=== PATIENT | female | born 1960 | race Hispanic/Latino ===

== ENCOUNTER 2017-04-26 16:03 | Emergency (ER) | payer MEDICARE ==
[2017-04-26] MEDS ORDERED: NITROGLYCERIN 0.4 MG SL TAB SL ONE (16:26)
[2017-04-26] MEDS ORDERED: ASPIRIN 325 MG TABLET ONE (16:26)
[2017-04-26 16:32] LABS: BASOPHILS % (AUTO) 0.5 % (0.0-5.0); EOSINOPHILS % (AUTO) 3.9 % (0.0-8.0); HEMATOCRIT 38.4 % (36-48); LYMPHOCYTES % (AUTO) 37.9 % (21.0-51.0); MEAN CORPUSCULAR HEMOGLOBIN 31.6 pg (27.0-33.0); MEAN CORPUSCULAR HGB CONC 34.9 g/dL (32.0-36.0); MEAN CORPUSCULAR VOLUME 90.6 fL (79-99); MONOCYTES % (AUTO) 5.6 % (3.0-13.0); NEUTROPHILS % (AUTO) 52.1 % (40.0-77.0); PLATELET COUNT (AUTO) 415 K/uL (130-400); RED BLOOD CELL COUNT(AUTO) 4.23 MIL/uL (4.00-5.50); RED CELL DISTRIBUTION WIDTH 13.3 % (11.0-15.5); WHITE BLOOD COUNT (AUTO) 7.5 K/uL (4.8-10.8)
[2017-04-26] MEDS ORDERED: ONDANSETRON HCL 4 MG/2 ML VIAL ONE (16:34)
[2017-04-26 16:40] LABS: CREATININE 0.9 mg/dL (0.5-1.5)
[2017-04-26 16:45] LABS: BILIRUBIN,TOTAL 0.2 mg/dL (0.2-1.0); TOTAL PROTEIN, SERUM 8.5 g/dL (6.0-8.3)
[2017-04-26 16:52] LABS: INR 0.93 (0.85-1.15); PARTIAL THROMBOPLASTIN TIME 25.2 SEC (26.3-35.5); PROTHROMBIN TIME 9.8 SEC (9.6-11.6)
[2017-04-26] MEDS ORDERED: KETOROLAC TROMETHAMINE 30MG/ML ONE (17:09)
[2017-05-26] MEDS ORDERED: INS7030 SQ ×2 (11:40)
[2017-05-26] MEDS ORDERED: ATOR40TA71 PO (11:40)
[2017-05-26] MEDS ORDERED: FISH1CAP49 PO (11:40)
[2017-05-26] MEDS ORDERED: FLUO20CA30 PO (11:40)
[2017-05-26] MEDS ORDERED: METF850T2 PO (11:40)
[2017-05-26] MEDS ORDERED: LISI40TA4 PO (11:40)
[2017-05-26] MEDS ORDERED: CYAN500L PO (11:40)
[2017-05-26] MEDS ORDERED: GABA-531 PO (11:40)
[2017-05-26] MEDS ORDERED: MULT1TAB66 PO (11:40)
[2017-05-26] MEDS ORDERED: CETI-101 PO (11:40)
[2017-05-26] MEDS ORDERED: ACET-2900 PO (11:40)
[2017-05-26] MEDS ORDERED: AMLO10TA2 PO (11:41)
== END 2017-04-26 18:56 | disposition home or self-care (01) ==
LOC: EDH 16:03
DX: R07.9 Chest pain, unspecified (principal); E11.9 Type 2 diabetes mellitus without complications; E78.5 Hyperlipidemia, unspecified; I10 Essential (primary) hypertension; M19.90 Unspecified osteoarthritis, unspecified site; Z98.890 Other specified postprocedural states
CPT/HCPCS: 36415; 71045; 80053; 82550; 84484 ×2; 85025; 85378; 85610; 85730; 93005 ×2; 96374; 96375; 99285; J1885; J2405

== ENCOUNTER 2017-05-26 12:00 | Observation (INO) | payer MEDICARE ==
[~2017-05-26] VITALS: Ht 147.3 cm; Wt 58.5 kg
[2017-05-26 11:18] VITALS: BP 136/72
[~2017-05-26 12:00] MED LIST: ACET-2900 PO; AMLO10TA2 PO; ATOR40TA71 PO; CETI-101 PO; CYAN500L PO; FISH1CAP49 PO; FLUO20CA30 PO; GABA-531 PO; INS7030 SQ; LISI40TA4 PO; METF850T2 PO; MULT1TAB66 PO
[2017-05-27] VITALS (23 sets, daily range): BP systolic 114–144; BP diastolic 58–84
[2017-05-27] MEDS ORDERED: CEFAZOLIN SODIUM 1 GM VIAL IVP SCH (05:00)
[2017-05-27] MEDS ORDERED: SODIUM CHLORIDE 0.9% 1000ML 1,000 ML IV ONE (09:40)
[2017-05-27] MEDS ORDERED: VECURONIUM BROMIDE 10 MG ML IV ONE (11:06)
[2017-05-27] MEDS ORDERED: ROPIVACAINE 0.5% 5MG/ML 30ML IJ ONE (11:06)
[2017-05-27] MEDS ORDERED: DEXAMETHASONE SOD PHOSPHATE 10MG/ML 1ML VIAL ONE (11:08)
[2017-05-27] MEDS ORDERED: SUCCINYLCHOLINE 200MG/10ML SYR ONE (11:08)
[2017-05-27] MEDS ORDERED: LIDOCAINE PF 2% 5ML ABBOJECT ONE (11:08)
[2017-05-27] MEDS ORDERED: ONDANSETRON HCL 4 MG/2 ML VIAL ONE (11:08)
[2017-05-27] MEDS ORDERED: GLYCOPYRROLATE 0.2 MG/ML 5 ML VIAL ONE (11:08)
[2017-05-27] MEDS ORDERED: FENTANYL CITRATE PF 50 MCG/1 ML 2ML VIAL ONE (11:08)
[2017-05-27] MEDS ORDERED: PROPOFOL 10 MG/ML 20ML VIAL IV ONE ×2 (11:08→13:00)
[2017-05-27] MEDS ORDERED: MIDAZOLAM HCL 1 MG/ML 2ML VIAL ONE (11:08)
[2017-05-27] MEDS ORDERED: NEOSTIGMINE 5MG/5ML SYR IV ONE (13:01)
[2017-05-27] MEDS ORDERED: KETOROLAC TROMETHAMINE 30MG/ML ONE (13:07)
[2017-05-27 13:52] LABS: HEMATOCRIT 35.1 % (36-48)
[2017-05-27] MEDS ORDERED: LACTATED RINGERS 1000ML 1,000 ML IV ONE (15:27)
[2017-05-27] MEDS ORDERED: PROMETHAZINE HCL 25 MG/ML 1ML AMPULE IM PRN (15:30)
[2017-05-27] MEDS ORDERED: LACTATED RINGERS 1000ML 1,000 ML IV SCH (15:30)
[2017-05-27] MEDS ORDERED: BISACODYL 10 MG SUPP.RECT RC PRN (15:30)
[2017-05-27] MEDS ORDERED: DEXTROSE 5%-LACTATED RINGERS 1,000 ML IV SCH (15:30)
[2017-05-27] MEDS ORDERED: MAGNESIUM HYDROXIDE 30 ML/UDCUP PO PRN (15:30)
[2017-05-27] MEDS ORDERED: MORPHINE SULFATE 10 MG/ML 1ML SYG IM PRN (15:30)
[2017-05-27] MEDS: CEFAZOLIN SODIUM 1 GM VIAL IVP SCH ×2 (16:28→23:46)
[2017-05-27 18:08] LABS: HEMATOCRIT 35.1 % (36-48)
[2017-05-28 00:05] VITALS: BP 116/67
[2017-05-28] MEDS ORDERED: INSULIN HUMULIN R 100 UNIT/ML 3ML ONE (00:34)
[2017-05-28] MEDS ORDERED: POTASSIUM CHLORIDE 20 MEQ ERTAB PO PRN (00:45)
[2017-05-28] MEDS ORDERED: POTASSIUM CHLORIDE 10% ELIXIR 20 MEQ/15 ML UDCUP PO PRN (00:45)
[2017-05-28] MEDS ORDERED: GLUCAGON 1MG KIT 1 MG ML IM PRN (00:45)
[2017-05-28] MEDS ORDERED: POTASSIUM CHLORIDE 20MEQ/100ML 100 ML IV PRN (00:45)
[2017-05-28] MEDS ORDERED: ACETAMINOPHEN-CODEINE 300/30MG TAB PO PRN (00:45)
[2017-05-28] MEDS ORDERED: INSULIN HUMULIN R 100 UNIT/ML 3ML SQ SCH (00:45)
[2017-05-28] MEDS ORDERED: DEXTROSE 50%-WATER 50 ML DISP.SYRIN IV PRN (00:45)
[2017-05-28] MEDS ORDERED: LIDOCAINE HCL-MPF 1% 2ML VIAL IVP PRN (00:45)
[2017-05-28 01:19] LABS: HEMATOCRIT 32.4 % (36-48)
[2017-05-28] MEDS: KETOROLAC TROMETHAMINE 30MG/ML IV PRN ×2 (03:48→09:25)
[2017-05-28 04:00] VITALS: BP 143/76
[2017-05-28 05:07] LABS: HEMATOCRIT 31.6 % (36-48); MEAN CORPUSCULAR HEMOGLOBIN 31.5 pg (27.0-33.0); MEAN CORPUSCULAR HGB CONC 35.9 g/dL (32.0-36.0); MEAN CORPUSCULAR VOLUME 87.7 fL (79-99); PLATELET COUNT (AUTO) 398 K/uL (130-400); RED CELL DISTRIBUTION WIDTH 13.3 % (11.0-15.5); WHITE BLOOD COUNT (AUTO) 14.8 K/uL (4.8-10.8)
[2017-05-28 05:13] LABS: CREATININE 0.7 mg/dL (0.5-1.5)
[2017-05-28] MEDS ORDERED: INSULIN HUMULIN 70/30 100 UNIT/ML 3ML SQ ONE (06:08)
[2017-05-28] MEDS: INSULIN HUMULIN R 100 UNIT/ML 3ML SQ SCH ×3 (06:10→16:30)
[2017-05-28 08:00] VITALS: BP_SYST 109; BP_SYST 136; BP_DIAS 66; BP_DIAS 73
[2017-05-28] MEDS: CEFAZOLIN SODIUM 1 GM VIAL IVP SCH (08:09)
[2017-05-28] MEDS ORDERED: FLUOXETINE HCL 20 MG CAPSULE PO SCH (09:00)
[2017-05-28] MEDS ORDERED: INSULIN HUMULIN 70/30 100 UNIT/ML 3ML SQ SCH ×2 (09:00→21:00)
[2017-05-28] MEDS ORDERED: AMLODIPINE BESYLATE 5 MG TAB PO SCH (09:00)
[2017-05-28] MEDS ORDERED: CYANOCOBALAMIN (VITAMIN B-12) 1,000 MCG TABLET PO SCH (09:00)
[2017-05-28] MEDS ORDERED: LISINOPRIL 40 MG TABLET PO SCH (09:00)
[2017-05-28] MEDS ORDERED: TRAMADOL HCL 50 MG TABLET PO SCH (09:00)
[2017-05-28] MEDS ORDERED: MULTIVITAMIN TABLET PO SCH (09:00)
[2017-05-28] MEDS ORDERED: CETIRIZINE HCL 5 MG TABLET PO SCH (09:00)
[2017-05-28 11:00] VITALS: BP 139/77
[2017-05-28] MEDS: METFORMIN HCL 850 MG TABLET PO SCH ×2 (11:00→16:40)
[2017-05-28] MEDS: FISH OIL 1000 MG/CAP PO SCH ×2 (11:01→16:39)
[2017-05-28] MEDS: GABAPENTIN 300 MG CAPSULE PO SCH ×2 (11:01→16:40)
[2017-05-28] MEDS ORDERED: ATORVASTATIN CALCIUM 40 MG TABLET PO SCH (21:00)
[2017-05-28] MEDS ORDERED: ACETAMINOPHEN EXTENDED RELEASE 650 MG TABLET PO SCH (21:00)
== END 2017-05-28 17:00 | disposition home or self-care (01) ==
LOC: EDSTATUS 12:00 → DAHIP 05-27 08:39 → 4BH 05-27 13:36
DX: M75.42 Impingement syndrome of left shoulder (principal); M75.102 Unspecified rotator cuff tear or rupture of left shoulder, not specified as traumatic; E78.00 Pure hypercholesterolemia, unspecified; K21.9 Gastro-esophageal reflux disease without esophagitis; I10 Essential (primary) hypertension; E11.42 Type 2 diabetes mellitus with diabetic polyneuropathy; F32.9 Major depressive disorder, single episode, unspecified; Z79.899 Other long term (current) drug therapy; Z82.49 Family history of ischemic heart disease and other diseases of the circulatory system; M25.712 Osteophyte, left shoulder; E11.65 Type 2 diabetes mellitus with hyperglycemia; E78.5 Hyperlipidemia, unspecified
CPT/HCPCS: 23120; 23130; 23412; 36415 ×3; 71045; 80048; 82948 ×5; 85027; 85730; 88304; 88311; 96372; 96374; 96375; 96376 ×2; 97116 ×2; 97161; A4218 ×4; A4510; A4600; A4930; A6223; C1713 ×2; G0378 ×33; G8978; G8979; G8980; G8981; G8982; G8983; J0330; J0690 ×5; J1100; J1815 ×4; J1885 ×3; J2001; J2250; J2405; J2704 ×2; J2710; J2795; J3010; J3490 ×2; J7030 ×2; J7120 ×2

== ENCOUNTER 2017-06-01 13:01 | Emergency (ER) | payer MEDICARE ==
[2017-06-01] MEDS ORDERED: ONDANSETRON ODT 4 MG TAB ONE (15:02)
[2017-06-01] MEDS ORDERED: MORPHINE SULFATE 4 MG/1ML SYG ONE (15:02)
[2017-06-01] MEDS ORDERED: MORPHINE SULFATE 2 MG/ML 1ML SYG ONE (15:03)
== END 2017-06-01 15:18 | disposition home or self-care (01) ==
LOC: EDH 13:01
DX: G89.18 Other acute postprocedural pain (principal); M25.512 Pain in left shoulder; M19.90 Unspecified osteoarthritis, unspecified site; E11.9 Type 2 diabetes mellitus without complications; E78.5 Hyperlipidemia, unspecified; I10 Essential (primary) hypertension; Z98.890 Other specified postprocedural states; Z79.899 Other long term (current) drug therapy
CPT/HCPCS: 96372; 99283; J2270

== ENCOUNTER 2017-10-02 16:00 | Emergency (ER) | payer MEDICARE ==
[2017-10-02 16:59] LABS: BASOPHILS % (AUTO) 0.5 % (0.0-5.0); EOSINOPHILS % (AUTO) 3.6 % (0.0-8.0); HEMATOCRIT 35.2 % (36-48); LYMPHOCYTES % (AUTO) 41.5 % (21.0-51.0); MEAN CORPUSCULAR HEMOGLOBIN 30.5 pg (27.0-33.0); MEAN CORPUSCULAR HGB CONC 34.5 g/dL (32.0-36.0); MEAN CORPUSCULAR VOLUME 88.4 fL (79-99); MONOCYTES % (AUTO) 7.2 % (3.0-13.0); NEUTROPHILS % (AUTO) 47.2 % (40.0-77.0); PLATELET COUNT (AUTO) 394 K/uL (130-400); RED BLOOD CELL COUNT(AUTO) 3.98 MIL/uL (4.00-5.50); RED CELL DISTRIBUTION WIDTH 13.7 % (11.0-15.5); WHITE BLOOD COUNT (AUTO) 7.7 K/uL (4.8-10.8)
[2017-10-02 17:10] LABS: CREATININE 0.6 mg/dL (0.5-1.5); POTASSIUM 3.5 mmol/L (3.5-5.1)
[2017-10-02 17:15] LABS: ALBUMIN 3.8 g/dL (3.5-5.0); BILIRUBIN,TOTAL 0.2 mg/dL (0.2-1.0); TOTAL PROTEIN, SERUM 7.5 g/dL (6.0-8.3)
[2017-10-02 18:04] LABS: APPEARANCE,URINE Clear (CLEAR); BILIRUBIN,URINE Negative (NEGATIVE); COLOR,URINE Yellow (YELLOW); GLUCOSE, URINE (UA) Negative (NEGATIVE); KETONES,URINE Negative (NEGATIVE); LEUKOCYTE ESTERASE ,URINE Trace (NEGATIVE); NITRATE,URINE Negative (NEGATIVE); OCCULT BLOOD,URINE Negative (NEGATIVE); PH,URINE 7.5 (5.0-8.0); PROTEIN,URINE Negative (NEGATIVE); UROBILINOGEN,URINE 0.2 mg/dL (0.2-1.0)
[2017-10-02 18:15] LABS: BACTERIA,URINE None Seen /HPF (None Seen); RBC,URINE None Seen /HPF (0-1); WBC,URINE None Seen /HPF (0-1)
== END 2017-10-02 21:18 | disposition home or self-care (01) ==
LOC: EDH 16:00
DX: E11.649 Type 2 diabetes mellitus with hypoglycemia without coma (principal); E78.5 Hyperlipidemia, unspecified; I10 Essential (primary) hypertension; Z79.4 Long term (current) use of insulin
CPT/HCPCS: 36415; 80053; 81001; 82948; 84484; 85025; 93005

== ENCOUNTER 2018-07-17 10:48 | Observation (INO) | payer MEDICARE ==
[~2018-07-17] VITALS: Ht 139.7 cm; Wt 61.3 kg
[~2018-07-17 10:48] MED LIST changes: -AMLO10TA2 PO; +AMLO10TA7 PO; +METF-445 PO; -METF850T2 PO
[2018-07-17] MEDS ORDERED: ASPIRIN 325 MG TABLET ONE (11:06)
[2018-07-17 11:23] LABS: BASOPHILS % (AUTO) 1.2 % (0.0-5.0); EOSINOPHILS % (AUTO) 2.2 % (0.0-8.0); HEMATOCRIT 38.7 % (36-48); LYMPHOCYTES % (AUTO) 50.8 % (21.0-51.0); MEAN CORPUSCULAR HEMOGLOBIN 29.9 pg (27.0-33.0); MEAN CORPUSCULAR HGB CONC 33.7 g/dL (32.0-36.0); MEAN CORPUSCULAR VOLUME 88.7 fL (79-99); MONOCYTES % (AUTO) 6.2 % (3.0-13.0); NEUTROPHILS % (AUTO) 39.6 % (40.0-77.0); PLATELET COUNT (AUTO) 523 K/uL (130-400); RED BLOOD CELL COUNT(AUTO) 4.36 MIL/uL (4.00-5.50); RED CELL DISTRIBUTION WIDTH 13.8 % (11.0-15.5); WHITE BLOOD COUNT (AUTO) 6.5 K/uL (4.8-10.8)
[2018-07-17 11:32] LABS: ALBUMIN 4.3 g/dL (3.5-5.0); BILIRUBIN,TOTAL 0.3 mg/dL (0.2-1.0); TOTAL PROTEIN, SERUM 9.1 g/dL (6.0-8.3)
[2018-07-17] MEDS ORDERED: NITROGLYCERIN 0.4 MG SL TAB SL ONE (11:55)
[2018-07-17] MEDS ORDERED: ACETAMINOPHEN EXTRA STRENGTH 500 MG TABLET ONE (12:02)
[2018-07-17] MEDS ORDERED: IOHEXOL 350 MG/ML 100ML INFUS..BTL IV ONE (12:21)
[2018-07-17] MEDS ORDERED: DiphenhydrAMINE HCL 50 MG/ML VIAL ONE (13:51)
[2018-07-17] MEDS ORDERED: SODIUM CHLORIDE 0.9% 10 ML VIAL IVP PRN (15:30)
--- NOTE | 2018-07-17 16:30 | NUR ---
PT . CAME IN FROM ER. . NOTED NO ID BAND. OR ALLERGY BAND , PER REPORT. PT GOT HIVES AND WAS GIVEN BENADRYL. IV AFTER CT SCAN. WITH CONTRAST GIVEN.. PT . AT THIS POINT . STATED THAT SHE HAS NO ITCHING NOW. . REVIEW PLAN OF CARE. AND DR. MARIA DENIES ANY CHEST PAIN.. CALLED THE E.R. NURSE. CLIFF RIBEIRO. WHO CAME ME REPORT. AND STATED THAT SHE WOULD COME BY TO -PLACE THE I.D. BAND .
--- NOTE | 2018-07-17 16:35 | NUR ---
MATEO OSBORN . WILLIE . FROM ER CAME IN TO PLACE A ID BAND .
[2018-07-17 16:53] VITALS: BP 121/74
[2018-07-17] MEDS ORDERED: CHOL100018 PO (17:56)
[2018-07-17] MEDS ORDERED: OFLO5DRO21 OT (17:56)
[2018-07-17] MEDS ORDERED: DIPH25 PO (17:56)
[2018-07-17] MEDS ORDERED: PANT40TA PO (17:56)
[2018-07-17] MEDS ORDERED: GABA-529 PO (17:56)
[2018-07-17] MEDS ORDERED: TYL3 PO (17:56)
[2018-07-17] MEDS ORDERED: DULO20CA17 PO (17:56)
[2018-07-17] MEDS ORDERED: ASPI-1181 PO (17:56)
[2018-07-17] MEDS ORDERED: PRAV40TA3 PO (17:56)
[2018-07-17] MEDS ORDERED: METF-446 PO (17:56)
[2018-07-17] MEDS: ENOXAPARIN SODIUM 40 MG/0.4 ML SYRINGE SQ SCH ×4 (18:00→18:18)
[2018-07-17] MEDS: ASPIRIN 325 MG TABLET PO SCH ×2 (18:08→18:10)
[2018-07-17] MEDS: FAMOTIDINE/PF 20 MG/2 ML VIAL IV SCH (18:08)
[2018-07-17] MEDS: NITROGLYCERIN 0.4 MG SL TAB SL PRN ×2 (18:09→18:11)
[2018-07-17 19:03] VITALS: BP 129/85
[2018-07-17] MEDS ORDERED: GLUCAGON 1MG KIT 1 MG ML IM PRN (21:00)
[2018-07-17] MEDS ORDERED: DEXTROSE 50%-WATER 50 ML DISP.SYRIN IV PRN (21:00)
[2018-07-17] MEDS: INSULIN HUMULIN R 100 UNIT/ML 3ML SQ SCH (22:06)
[2018-07-17 22:36] LABS: CREATINE KINASE, TOTAL 62 U/L (21-232); MYOGLOBIN 29 ng/mL (10-92); TROPONIN I < 0.04 ng/mL (0.00-0.06)
[2018-07-17 23:15] VITALS: BP 125/72
[2018-07-18 03:00] VITALS: BP 142/79
[2018-07-18 04:25] LABS: HEMATOCRIT 33.3 % (36-48); MEAN CORPUSCULAR HEMOGLOBIN 30.9 pg (27.0-33.0); MEAN CORPUSCULAR HGB CONC 34.6 g/dL (32.0-36.0); MEAN CORPUSCULAR VOLUME 89.2 fL (79-99); PLATELET COUNT (AUTO) 436 K/uL (130-400); RED BLOOD CELL COUNT(AUTO) 3.74 MIL/uL (4.00-5.50); RED CELL DISTRIBUTION WIDTH 13.6 % (11.0-15.5); WHITE BLOOD COUNT (AUTO) 5.9 K/uL (4.8-10.8)
[2018-07-18 04:27] LABS: HEMOGLOBIN A1C 7.9 % (4.0-6.0)
[2018-07-18 04:50] LABS: ALANINE AMINOTRANSFERASE 27 U/L (12-78); ALBUMIN 3.6 g/dL (3.5-5.0); ASPARTATE AMINOTRANSFERASE 18 U/L (10-37); BILIRUBIN,TOTAL 0.1 mg/dL (0.2-1.0); CARBON DIOXIDE 28 mmol/L (21-32); CHLORIDE 104 mmol/L (101-111); CHOLESTEROL 179 mg/dL (<200); CREATINE KINASE, TOTAL 75 U/L (21-232); CREATININE 0.8 mg/dL (0.5-1.5); GLOMERULAR FILTR. RATE CALC 78 mL/min (>60); GLUCOSE,RANDOM 115 mg/dL (70-105); HDL CHOLESTEROL 104 mg/dL (35-85); LDL DIRECT 114 mg/dL (0-99); MYOGLOBIN 28 ng/mL (10-92); POTASSIUM 4.6 mmol/L (3.5-5.1); SODIUM SERUM 140 mmol/L (136-145); TOTAL PROTEIN, SERUM 7.3 g/dL (6.0-8.3); TRIGLYCERIDES 174 mg/dL (30-200); TROPONIN I < 0.04 ng/mL (0.00-0.06); UREA NITROGEN, BLOOD 13 mg/dL (7-18)
[2018-07-18 05:00] LABS: BAND NEUTROPHILS % (MANUAL) 1 % (0-2); EOSINOPHILS % (MANUAL) 5 % (1-6); LYMPHOCYTES % (MANUAL) 66 % (22-44); MAN.DIFF COMMENT-IMPRESSION MANUAL DIFFERENTIAL; SEGMENTED NEUTROPHILS % 28 % (40-70)
[2018-07-18 05:02] LABS: PLATELET MORPHOLOGY COMMENT ADEQUATE
[2018-07-18] MEDS ORDERED: GABAPENTIN 100 MG CAPSULE PO SCH (06:15)
[2018-07-18] MEDS: INSULIN HUMULIN R 100 UNIT/ML 3ML SQ SCH ×3 (06:29→17:04)
[2018-07-18 07:00] VITALS: BP 116/69
[2018-07-18] MEDS: FISH OIL 1000 MG/CAP PO SCH ×3 (08:00→16:55)
[2018-07-18] MEDS ORDERED: DULOXETINE HCL 20 MG PO SCH (09:00)
[2018-07-18] MEDS ORDERED: VITAMIN D3 PO SCH (09:00)
[2018-07-18] MEDS ORDERED: LISINOPRIL 40 MG TABLET PO SCH (09:00)
[2018-07-18] MEDS ORDERED: CYANOCOBALAMIN (VITAMIN B-12) 100 MCG TABLET PO SCH (09:00)
[2018-07-18] MEDS ORDERED: AMLODIPINE BESYLATE 5 MG TAB PO SCH (09:00)
[2018-07-18] MEDS ORDERED: OFLOXACIN OT SCH (09:00)
--- NOTE | 2018-07-18 09:00 | NUR ---
CHART REVIEWED, NOTED PLAN OF CARE, ORDER FOR OBS
[2018-07-18] MEDS: FAMOTIDINE/PF 20 MG/2 ML VIAL IV SCH (10:28)
[2018-07-18] MEDS: GABAPENTIN 300 MG CAPSULE PO SCH ×2 (10:36→14:00)
[2018-07-18 11:00] VITALS: BP 110/67
[2018-07-18 11:12] LABS: CREATINE KINASE, TOTAL 63 U/L (21-232); MYOGLOBIN 41 ng/mL (10-92); TROPONIN I < 0.04 ng/mL (0.00-0.06)
--- NOTE | 2018-07-18 12:00 | NUR ---
LAST CARDIAC LABS .NEG . UPDATE . . CARE . TO HOSPITALIST. WITH DR. MARIA . TO DISCHARGE HOME, UPDATE . DR. MARIA TO PT. STATED THAT SHE WOULD LEAVE AFTER 5: PM DUE TO TRANSPORTATION DENIES ANY CHEST PAIN . CALL LIGHT IN REACH..
[2018-07-18 16:00] VITALS: BP 110/66
--- NOTE | 2018-07-18 18:00 | NUR ---
DISCHARGE HOME, SUMMARY REVIEW WITH PT. . FOLLOWUP CARE WITH PRIVATE AND SEWING LINE BALER RAMONITA TO HER RFA, DC WITH NO HEMATOMA NOTED ..
[2018-07-18] MEDS ORDERED: SIMVASTATIN 20 MG TABLET PO SCH (21:00)
== END 2018-07-18 18:00 | disposition home or self-care (01) ==
LOC: EDH 10:48 → INTOOBSV 14:40 → EDHIP 14:40 → 3AH 16:20
PROVIDERS: ADMIT Family Medicine; ATTEND Family Medicine
DX: R07.89 Other chest pain (principal); I10 Essential (primary) hypertension; E78.5 Hyperlipidemia, unspecified; E11.40 Type 2 diabetes mellitus with diabetic neuropathy, unspecified; K21.9 Gastro-esophageal reflux disease without esophagitis; M19.90 Unspecified osteoarthritis, unspecified site; Z82.49 Family history of ischemic heart disease and other diseases of the circulatory system; Z83.3 Family history of diabetes mellitus; Z96.698 Presence of other orthopedic joint implants
CPT/HCPCS: 36415 ×2; 71045; 71275; 80053 ×2; 80061; 82550 ×3; 82948 ×5; 83036; 83735; 83874 ×3; 83880; 84484 ×4; 85025 ×2; 85378; 93005; 96372 ×2; 96374; 99284; G0378 ×27; J1200; J1650; J1815 ×2; J3490; Q9967; 99291

== ENCOUNTER 2019-05-18 10:08 | Emergency (ER) | payer MEDICARE ==
[~2019-05-18 10:08] MED LIST changes: -ACET-2900 PO; +ASPI-1181 PO; -ATOR40TA71 PO; -CETI-101 PO; +CHOL100018 PO; +DIPH25 PO; +DULO20CA18 PO; -FLUO20CA30 PO; +GABA-529 PO; -METF-445 PO; +METF-446 PO; -MULT1TAB66 PO; +OFLO5DRO21 OT; +PANT40TA PO; +PRAV40TA3 PO; +TYL3 PO
[2019-05-18] MEDS ORDERED: ASPIRIN 325 MG TABLET ONE (10:28)
[2019-05-18 10:42] LABS: BASOPHILS % (AUTO) 0.1 % (0.0-5.0); HEMATOCRIT 31.3 % (36-48); LYMPHOCYTES % (AUTO) 12.2 % (21.0-51.0); MEAN CORPUSCULAR HEMOGLOBIN 29.4 pg (27.0-33.0); MEAN CORPUSCULAR HGB CONC 33.9 g/dL (32.0-36.0); MEAN CORPUSCULAR VOLUME 86.7 fL (79-99); MONOCYTES % (AUTO) 5.9 % (3.0-13.0); PLATELET COUNT (AUTO) 418 K/uL (130-400); RED BLOOD CELL COUNT(AUTO) 3.61 MIL/uL (4.00-5.50); WHITE BLOOD COUNT (AUTO) 13.4 K/uL (4.8-10.8)
[2019-05-18 10:50] LABS: CREATININE 1.2 mg/dL (0.5-1.5)
[2019-05-18 10:57] LABS: ALBUMIN 3.8 g/dL (3.5-5.0); BILIRUBIN,TOTAL 0.2 mg/dL (0.2-1.0)
[2019-05-18 11:15] LABS: INR 0.95 (0.85-1.15); PARTIAL THROMBOPLASTIN TIME 23.8 SEC (26.3-35.5)
== END 2019-05-18 14:34 | disposition home or self-care (01) ==
LOC: EDH 10:08
DX: R07.89 Other chest pain (principal); E11.9 Type 2 diabetes mellitus without complications; E78.5 Hyperlipidemia, unspecified; I10 Essential (primary) hypertension; M19.90 Unspecified osteoarthritis, unspecified site
CPT/HCPCS: 36415; 71045; 80053; 82550; 84484; 85025; 85610; 85730; 93005; 96374

== ENCOUNTER 2019-11-01 16:09 | Inpatient (IN) | payer MEDICARE ==
[~2019-11-01] VITALS: Ht 147.3 cm; Wt 55.8 kg
[~2019-11-01 16:09] MED LIST changes: -ASPI-1181 PO; +ASPI-1443 PO
[2019-11-01 17:08] LABS: BASOPHILS % (AUTO) 0.1 % (0.0-5.0); LYMPHOCYTES % (AUTO) 15.5 % (21.0-51.0); MEAN CORPUSCULAR HEMOGLOBIN 29.1 pg (27.0-33.0); MEAN CORPUSCULAR HGB CONC 34.4 g/dL (32.0-36.0); MEAN CORPUSCULAR VOLUME 84.6 fL (79-99); MONOCYTES % (AUTO) 7.9 % (3.0-13.0); NEUTROPHILS % (AUTO) 75.3 % (40.0-77.0); PLATELET COUNT (AUTO) 370 K/uL (130-400); RED BLOOD CELL COUNT(AUTO) 4.02 MIL/uL (4.00-5.50); RED CELL DISTRIBUTION WIDTH 13.8 % (11.0-15.5); WHITE BLOOD COUNT (AUTO) 6.7 K/uL (4.8-10.8)
[2019-11-01] MEDS ORDERED: CEFTRIAXONE SODIUM 2 GM VIAL ONE (17:16)
[2019-11-01] MEDS ORDERED: AZITHROMYCIN 500MG+NS 250ML 250 ML IV ONE (17:16)
[2019-11-01] MEDS ORDERED: SODIUM CHLORIDE 0.9% 100 ML IV ONE (17:18)
[2019-11-01 17:21] LABS: CARBON DIOXIDE 24 mmol/L (21-32); CHLORIDE 91 mmol/L (101-111); CREATININE 0.9 mg/dL (0.5-1.5); GLOMERULAR FILTR. RATE CALC 68 mL/min (>60); GLUCOSE,RANDOM 247 mg/dL (70-105); POTASSIUM 4.2 mmol/L (3.5-5.1); SODIUM SERUM 126 mmol/L (136-145); UREA NITROGEN, BLOOD 12 mg/dL (7-18)
[2019-11-01 17:25] LABS: INR 0.89 (0.85-1.15); PARTIAL THROMBOPLASTIN TIME 31.4 SEC (26.3-35.5); PROTHROMBIN TIME 9.7 SEC (9.6-11.6)
[2019-11-01 17:47] LABS: ALANINE AMINOTRANSFERASE 25 U/L (12-78); ASPARTATE AMINOTRANSFERASE 34 U/L (10-37); BILIRUBIN,TOTAL 0.3 mg/dL (0.2-1.0); CREATINE KINASE, TOTAL 36 U/L (21-232); MYOGLOBIN 19 ng/mL (10-92); TOTAL PROTEIN, SERUM 8.4 g/dL (6.0-8.3); TROPONIN I < 0.04 ng/mL (0.00-0.06)
[2019-11-01] MEDS: SODIUM CHLORIDE 0.9% 1000ML 1,000 ML IV SCH (19:42)
[2019-11-01] MEDS ORDERED: ONDANSETRON HCL 4 MG/2 ML VIAL IV PRN (19:45)
[2019-11-01] MEDS ORDERED: ERGOCALCIFEROL (VITAMIN D2) 50,000 UNIT CAPSULE PO ONE (19:45)
[2019-11-01] MEDS ORDERED: GUAIFENESIN-DM 200/20 MG 10 ML PO PRN (19:45)
[2019-11-01] MEDS ORDERED: MORPHINE SULFATE 4 MG/1ML SYG IV PRN (19:45)
[2019-11-01] MEDS: CEFTRIAXONE SODIUM 1 GM IVP SCH (19:45)
[2019-11-01] MEDS ORDERED: LACTULOSE 20 GM/30 ML UDCUP PO PRN (19:45)
[2019-11-01] MEDS ORDERED: HYDRALAZINE HCL 20 MG/ML VIAL IV PRN (19:45)
[2019-11-01] MEDS ORDERED: DIPHENHYDRAMINE HCL 25 MG CAPSULE PO PRN (19:45)
[2019-11-01] MEDS ORDERED: MAG HYDROX/AL HYDROX/SIMETH ES 30 ML SUSP UDCUP PO PRN (19:45)
[2019-11-01] MEDS ORDERED: ZOLPIDEM TARTRATE 5 MG TAB PO PRN (19:45)
[2019-11-01] MEDS ORDERED: ERGOCALCIFEROL (VITAMIN D2) 50,000 UNIT CAPSULE ONE (20:42)
[2019-11-01] MEDS ORDERED: DOXYCYCLINE HYCLATE 100 MG TABLET PO ONE (20:42)
[2019-11-01] MEDS ORDERED: BENZONATATE 100 MG CAPSULE PO ONE (20:42)
[2019-11-01] MEDS ORDERED: FAMOTIDINE 20MG TAB 20 MG TAB ONE (20:42)
[2019-11-01] MEDS: FAMOTIDINE 20MG TAB 20 MG TAB PO SCH (21:00)
[2019-11-01] MEDS: BENZONATATE 100 MG CAPSULE PO SCH (21:00)
[2019-11-01] MEDS: DOXYCYCLINE HYCLATE 100 MG TABLET PO SCH (21:00)
[2019-11-01] MEDS: INSULIN LISPRO 100 UNIT/ML 3ML SQ SCH (21:00)
[2019-11-01] MEDS ORDERED: INSULIN HUMULIN R 100 UNIT/ML 3ML ONE (22:10)
[2019-11-02 04:41] VITALS: BP 133/72
[2019-11-02 04:58] LABS: BASOPHILS % (AUTO) 0.1 % (0.0-5.0); LYMPHOCYTES % (AUTO) 23.1 % (21.0-51.0); MEAN CORPUSCULAR HEMOGLOBIN 29.1 pg (27.0-33.0); MEAN CORPUSCULAR HGB CONC 34.2 g/dL (32.0-36.0); MEAN CORPUSCULAR VOLUME 85.2 fL (79-99); MONOCYTES % (AUTO) 10.9 % (3.0-13.0); NEUTROPHILS % (AUTO) 64.4 % (40.0-77.0); PLATELET COUNT (AUTO) 378 K/uL (130-400); RED BLOOD CELL COUNT(AUTO) 3.64 MIL/uL (4.00-5.50); RED CELL DISTRIBUTION WIDTH 13.9 % (11.0-15.5); WHITE BLOOD COUNT (AUTO) 6.8 K/uL (4.8-10.8)
[2019-11-02] MEDS: SODIUM CHLORIDE 0.9% 1000ML 1,000 ML IV SCH ×2 (05:09→15:42)
[2019-11-02 05:35] LABS: ALBUMIN 2.5 g/dL (3.5-5.0); BILIRUBIN,TOTAL 0.2 mg/dL (0.2-1.0); CREATININE 0.8 mg/dL (0.5-1.5); CRP QUANTITATIVE 115.3 mg/L (0.00-9.0); POTASSIUM 4.4 mmol/L (3.5-5.1); TOTAL PROTEIN, SERUM 7.2 g/dL (6.0-8.3)
[2019-11-02] MEDS: INSULIN LISPRO 100 UNIT/ML 3ML SQ SCH ×4 (06:15→20:54)
[2019-11-02 08:00] VITALS: BP 130/66
[2019-11-02] MEDS: DOXYCYCLINE HYCLATE 100 MG TABLET PO SCH ×2 (08:54→20:46)
[2019-11-02] MEDS: FAMOTIDINE 20MG TAB 20 MG TAB PO SCH ×2 (08:54→20:46)
[2019-11-02] MEDS: ASCORBIC ACID 500 MG TAB PO SCH (08:55)
[2019-11-02] MEDS: BENZONATATE 100 MG CAPSULE PO SCH ×3 (08:55→20:46)
[2019-11-02] MEDS: HYDROCODONE/ACETAMINOPHEN 5/325 MG TAB PO PRN (08:55)
[2019-11-02] MEDS: CEFTRIAXONE SODIUM 1 GM IVP SCH ×2 (08:56→20:46)
[2019-11-02] MEDS: DEXAMETHASONE 4 MG TAB PO SCH (08:56)
[2019-11-02] MEDS: ENOXAPARIN SODIUM 40 MG/0.4 ML SYRINGE SQ SCH (08:57)
--- NOTE | 2019-11-02 09:16 | NUR ---
CHART COMPLETED. Pt IS A 58 Y.O. FEMALE ADMITTED SECONDARY TO COVID INFECTION. Pt HAS A PAST MEDICAL HISTORY SIGNIFICANT FOR ARTHRITIS, HTN, DMII, HYPERLIPIDEMIA, DEPRESSION. Pt CURRENTLY ON REGULAR TEXTURE,THIN LIQUID DIET (CONSISTENT CARB). PLEASE REQUEST FORMAL SKILLED SPEECH/SWALLOW EVALUATION IF Pt PRESENTS WITH +S/S OF ASPIRATION SUCH COUGH RESPONSE, THROAT CLEAR, OR WET VOCAL QUALITY DURING P.O. PLEASE CONSIDER EVALUATION IF CURRENT RESPIRATORY STATUS DECLINES. Addendum: 11/02/19 at 0920 by JOHN ROSARIO, ANK[address] Amended: Links added.
--- NOTE | 2019-11-02 11:23 | NUR ---
JULIA PLAN PATIENT IN COVID UNIT. CALLED PHONE IN ROOM 6L NC. PATIENT LIVES ALONE, SEMI INDEPENDENT ABLE TO PERFORM SOME ADL'S. PROVIDER 24HRS. NO SERVICES. FEELS SAFE TO RETURN HOME. DAUGHTER TO HELP WHEN ABLE WORKS DURING DAY. Addendum: 11/02/19 at 1125 by STEFANO WADE RN CM Amended: Links added.
[2019-11-02 11:30] VITALS: BP 128/71
[2019-11-02] MEDS: ZINC SULFATE 220 CAPSULE PO SCH (12:53)
[2019-11-02 15:30] VITALS: BP 129/71
--- NOTE | 2019-11-02 16:39 | NUR ---
PT AWAKE IN BED TALKING ON CELLPHONE. RESPIRATIONS EVEN AND UNLABORED. NO APPARENT DISTRESS NOTED, BUT O2 SAT 85% ON 6L NC. ASSISTED PATIENT TO PRONE POSITION. ENCOURAGED TO KEEP PHONE CONVERSATIONS LIMITED AND BRIEF AT THIS TIME. WILL CONTINUE TO MONITOR. SAFETY MEASURES IN PLACE.
--- NOTE | 2019-11-02 18:35 | NUR ---
PT AWAKE IN BED LYING SUPINE. NO APPARENT DISTRESS NOTED, BUT O2 SAT 83% ON 6L NC. ASSISTED PATIENT BACK TO PRONE POSITION. HR RATE 89%. PT DENIES ANY PAIN/DISCOMFORT. RT NOTIFIED TO ASSESS O2 STATUS. WILL CONTINUE TO MONITOR. SAFETY MEASURES IN PLACE. Addendum: 11/02/19 at 1842 by CHRISTINA GUERRERO RN RN PT'S O2 SAT 89% AT THIS TIME. NO APPARENT DISTRESS NOTED.
[2019-11-02 19:00] VITALS: BP 139/68
[2019-11-02 23:00] VITALS: BP 104/51
[2019-11-03] MEDS ORDERED: PHARMACY COMMUNICATION MISC SCH (00:30)
[2019-11-03] MEDS: SODIUM CHLORIDE 0.9% 1000ML 1,000 ML IV SCH ×3 (02:04→21:28)
[2019-11-03] MEDS: ACETAMINOPHEN 325 MG TAB PO PRN ×2 (02:52→21:56)
[2019-11-03 03:53] VITALS: BP 137/79
[2019-11-03 04:44] LABS: BASOPHILS % (AUTO) 0.4 % (0.0-5.0); HEMATOCRIT 32.5 % (36-48); MEAN CORPUSCULAR HEMOGLOBIN 28.5 pg (27.0-33.0); MEAN CORPUSCULAR HGB CONC 32.9 g/dL (32.0-36.0); MEAN CORPUSCULAR VOLUME 86.7 fL (79-99); MONOCYTES % (AUTO) 8.8 % (3.0-13.0); NEUTROPHILS % (AUTO) 72.4 % (40.0-77.0); PLATELET COUNT (AUTO) 428 K/uL (130-400); RED BLOOD CELL COUNT(AUTO) 3.75 MIL/uL (4.00-5.50); WHITE BLOOD COUNT (AUTO) 6.8 K/uL (4.8-10.8)
[2019-11-03 05:03] LABS: ALBUMIN 2.4 g/dL (3.5-5.0); BILIRUBIN,TOTAL 0.2 mg/dL (0.2-1.0); CREATININE 0.7 mg/dL (0.5-1.5); CRP QUANTITATIVE 80.3 mg/L (0.00-9.0); POTASSIUM 4.1 mmol/L (3.5-5.1); TOTAL PROTEIN, SERUM 7.3 g/dL (6.0-8.3)
[2019-11-03 07:00] VITALS: BP 121/58
[2019-11-03] MEDS: BENZONATATE 100 MG CAPSULE PO SCH ×3 (08:51→21:28)
[2019-11-03] MEDS: CEFTRIAXONE SODIUM 1 GM IVP SCH ×2 (08:51→21:27)
[2019-11-03] MEDS: INSULIN LISPRO 100 UNIT/ML 3ML SQ SCH ×4 (08:51→21:55)
[2019-11-03] MEDS: ASCORBIC ACID 500 MG TAB PO SCH (08:51)
[2019-11-03] MEDS: DEXAMETHASONE 4 MG TAB PO SCH (08:51)
[2019-11-03] MEDS: DOXYCYCLINE HYCLATE 100 MG TABLET PO SCH ×2 (08:51→21:28)
[2019-11-03] MEDS: FAMOTIDINE 20MG TAB 20 MG TAB PO SCH ×2 (08:51→21:28)
[2019-11-03] MEDS: ENOXAPARIN SODIUM 40 MG/0.4 ML SYRINGE SQ SCH (08:52)
[2019-11-03 11:00] VITALS: BP 118/70
--- NOTE | 2019-11-03 11:05 | NUR ---
PT AWAKE IN BED LYING SUPINE IN LOW LANDON'S POSITION. COUGHING WITH SHORTNESS OF BREATH NOTED AT REST, O2 SAT 82% ON 7L NC. ASSISTED PATIENT TO PRONE POSITION. PT DENIES ANY PAIN. O2 SAT IMPROVED TO 89%. WILL CONTINUE TO MONITOR. SAFETY MEASURES IN PLACE.
--- NOTE | 2019-11-03 11:30 | NUR ---
PT'S O2 SAT 91% ON 7L NC IN PRONE POSITION. NEW ORDER PER Jose NORWOOD NP TO PLACE PT ON HIGH FLOW NASAL CANNULA. RT NOTIFIED.
--- NOTE | 2019-11-03 12:15 | NUR ---
PT LYING SUPINE ON HIGH FLOW NASAL CANNULA 25L, 100%, O2 SAT 81%. HEART RATE TACHY. ASSISTED PATIENT BACK TO PRONE POSITION. O2 SAT IMPROVED TO 88%. RT NOTIFIED TO COME ASSESS O2 STATUS. WILL CONTINUE TO MONITOR. SAFETY MEASURES IN PLACE.
[2019-11-03] MEDS: ZINC SULFATE 220 CAPSULE PO SCH (12:35)
[2019-11-03] MEDS ORDERED: REMDESIVIR (EUA) 520 200 MG in SODIUM CHLORIDE 0.9% 250 ML IV ONE (14:00)
[2019-11-03] MEDS ORDERED: COMPOUND IV REFRIGERATED 1 EACH IVSOLN MISC PRN (14:15)
[2019-11-03 16:00] VITALS: BP 126/61
[2019-11-03 20:32] VITALS: BP 139/63
[2019-11-03] MEDS: PHARMACY COMMUNICATION MISC SCH (21:55)
[2019-11-04 00:07] VITALS: BP 133/59
[2019-11-04 04:04] LABS: ABG BASE EXCESS -1.3 mmol/L (-2.0-3.0); ABG OXYGEN SATURATION 94.8 % (95.0-99.0); ABG PCO2 33 mmHg (32-45)
[2019-11-04 04:58] VITALS: BP 139/63
[2019-11-04] MEDS: INSULIN LISPRO 100 UNIT/ML 3ML SQ SCH ×4 (05:00→21:12)
[2019-11-04 06:26] LABS: BASOPHILS % (AUTO) 0.2 % (0.0-5.0); HEMATOCRIT 29.9 % (36-48); LYMPHOCYTES % (AUTO) 11.3 % (21.0-51.0); MEAN CORPUSCULAR HGB CONC 34.1 g/dL (32.0-36.0); MEAN CORPUSCULAR VOLUME 84.9 fL (79-99); MONOCYTES % (AUTO) 9.3 % (3.0-13.0); NEUTROPHILS % (AUTO) 75.2 % (40.0-77.0); PLATELET COUNT (AUTO) 541 K/uL (130-400); RED BLOOD CELL COUNT(AUTO) 3.52 MIL/uL (4.00-5.50); WHITE BLOOD COUNT (AUTO) 10.9 K/uL (4.8-10.8)
[2019-11-04 06:51] LABS: ALANINE AMINOTRANSFERASE 23 U/L (12-78); ALBUMIN 2.2 g/dL (3.5-5.0); ASPARTATE AMINOTRANSFERASE 41 U/L (10-37); BILIRUBIN,TOTAL 0.2 mg/dL (0.2-1.0); CARBON DIOXIDE 25 mmol/L (21-32); CHLORIDE 102 mmol/L (101-111); CREATININE 0.6 mg/dL (0.5-1.5); GLOMERULAR FILTR. RATE CALC 108 mL/min (>60); GLUCOSE,RANDOM 155 mg/dL (70-105); LACTATE DEHYDROGENASE 619 U/L (81-234); PHOSPHORUS 3.4 mg/dL (2.5-4.9); POTASSIUM 3.9 mmol/L (3.5-5.1); SODIUM SERUM 136 mmol/L (136-145); TOTAL PROTEIN, SERUM 6.7 g/dL (6.0-8.3); UREA NITROGEN, BLOOD 16 mg/dL (7-18)
[2019-11-04 07:55] VITALS: BP 129/77
[2019-11-04] MEDS: ASCORBIC ACID 500 MG TAB PO SCH (09:46)
[2019-11-04] MEDS: CEFTRIAXONE SODIUM 1 GM IVP SCH ×2 (09:46→21:10)
[2019-11-04] MEDS: BENZONATATE 100 MG CAPSULE PO SCH ×3 (09:46→21:10)
[2019-11-04] MEDS: FAMOTIDINE 20MG TAB 20 MG TAB PO SCH ×2 (09:47→21:10)
[2019-11-04] MEDS: DOXYCYCLINE HYCLATE 100 MG TABLET PO SCH ×2 (09:47→21:10)
[2019-11-04] MEDS: DEXAMETHASONE 4 MG TAB PO SCH (09:47)
[2019-11-04] MEDS: ENOXAPARIN SODIUM 40 MG/0.4 ML SYRINGE SQ SCH (09:47)
[2019-11-04] MEDS: SODIUM CHLORIDE 0.9% 1000ML 1,000 ML IV SCH (09:49)
[2019-11-04] MEDS: ZINC SULFATE 220 CAPSULE PO SCH (11:30)
[2019-11-04] MEDS ORDERED: POTASSIUM CHLORIDE 20MEQ/100ML 100 ML IV PRN ×3 (11:45→12:30)
[2019-11-04] MEDS ORDERED: POTASSIUM CHLORIDE 20 MEQ ERTAB PO PRN (11:45)
[2019-11-04] MEDS ORDERED: POTASSIUM CHLORIDE 10% ELIXIR 20 MEQ/15 ML UDCUP PO PRN (11:45)
[2019-11-04] MEDS ORDERED: LIDOCAINE HCL-MPF 1% 2ML VIAL IV PRN ×3 (11:45→12:30)
[2019-11-04 11:46] VITALS: BP 120/50
[2019-11-04] MEDS: FUROSEMIDE 10 MG/ML 2ML VIAL IV SCH ×2 (13:11→21:10)
[2019-11-04] MEDS: REMDESIVIR (EUA) 520 100 MG in SODIUM CHLORIDE 0.9% 250 ML IV SCH (14:56)
[2019-11-04 15:34] VITALS: BP 125/62
--- NOTE | 2019-11-04 18:36 | NUR ---
PT AWAKE IN BED LYING SUPINE WITH HOB ELEVATED 30 DEGREES. NO APPARENT DISTRESS NOTED. RESPIRATIONS EVEN AND UNLABORED AT REST. O2 SAT 96% ON HFNC 35L, FiO2 100% AND NRB 100%. VSS. DENIES ANY PAIN/DISCOMFORT. REMDESIVIR ADMINISTERED ORDERED. LOVENOX THERAPY CHANGED TO 30 MG BID. IVF DISCONTINUED. IVP LASIX THERAPY INITIATED. POTASSIUM PROTOCOL ORDERED. WILL CONTINUE TO MONITOR. SAFETY MEASURES IN PLACE.
[2019-11-04] MEDS: PHARMACY COMMUNICATION MISC SCH (19:20)
[2019-11-04] MEDS: ENOXAPARIN SODIUM 30 MG/0.3 ML SQ SCH (21:11)
[2019-11-04 21:17] VITALS: BP 146/68
[2019-11-05 00:42] VITALS: BP 131/54
[2019-11-05] MEDS: FUROSEMIDE 10 MG/ML 2ML VIAL IV SCH ×3 (03:10→20:15)
[2019-11-05 04:44] VITALS: BP 131/54
--- NOTE | 2019-11-05 04:48 | NUR ---
MONITOR SPOKE TO NURSE STATING PATIENT HAD A 2.8 SECOND PAUSE AND THEN A 2.5 SECOND PAUSE. THIS NURSE WENT IN ROOM AND PATIENT STATED "I FEEL JUST FINE". PATIENT VITALS TAKEN AND WITHIN NORMAL LIMITS
[2019-11-05 05:01] LABS: ABG BASE EXCESS 0.4 mmol/L (-2.0-3.0); ABG HCO3 24.6 mmol/L (21.0-28.0); ABG PCO2 39 mmHg (32-45)
[2019-11-05 05:44] LABS: HEMATOCRIT 30.7 % (36-48); MEAN CORPUSCULAR HEMOGLOBIN 28.7 pg (27.0-33.0); MEAN CORPUSCULAR HGB CONC 34.2 g/dL (32.0-36.0); MEAN CORPUSCULAR VOLUME 83.9 fL (79-99); RED BLOOD CELL COUNT(AUTO) 3.66 MIL/uL (4.00-5.50); RED CELL DISTRIBUTION WIDTH 13.7 % (11.0-15.5); WHITE BLOOD COUNT (AUTO) 9.6 K/uL (4.8-10.8)
[2019-11-05] MEDS: INSULIN LISPRO 100 UNIT/ML 3ML SQ SCH ×3 (05:44→20:35)
[2019-11-05 06:33] LABS: CREATININE 0.8 mg/dL (0.5-1.5); POTASSIUM 3.7 mmol/L (3.5-5.1)
[2019-11-05 08:00] VITALS: BP 141/64
[2019-11-05] MEDS: DOXYCYCLINE HYCLATE 100 MG TABLET PO SCH ×2 (08:53→20:14)
[2019-11-05] MEDS: ENOXAPARIN SODIUM 30 MG/0.3 ML SQ SCH ×2 (08:53→20:15)
[2019-11-05] MEDS: DEXAMETHASONE 4 MG TAB PO SCH (08:54)
[2019-11-05] MEDS: FAMOTIDINE 20MG TAB 20 MG TAB PO SCH ×2 (08:54→20:14)
[2019-11-05] MEDS: CEFTRIAXONE SODIUM 1 GM IVP SCH ×2 (08:54→20:14)
[2019-11-05] MEDS: ASCORBIC ACID 500 MG TAB PO SCH (08:54)
[2019-11-05] MEDS: BENZONATATE 100 MG CAPSULE PO SCH ×3 (08:54→20:14)
[2019-11-05 12:00] VITALS: BP 125/64
[2019-11-05] MEDS: ACETAMINOPHEN 325 MG TAB PO PRN (13:11)
[2019-11-05] MEDS: ZINC SULFATE 220 CAPSULE PO SCH (13:12)
[2019-11-05] MEDS: REMDESIVIR (EUA) 520 100 MG in SODIUM CHLORIDE 0.9% 250 ML IV SCH (13:12)
[2019-11-05 16:00] VITALS: BP 148/69
--- NOTE | 2019-11-05 19:00 | NUR ---
02 Rt decresed high flow to 20 liters and non rebreather mask to 80%.Pt states she feels better.Will continue to monitor.
[2019-11-05 19:55] VITALS: BP 135/94
[2019-11-06] VITALS (7 sets, daily range): BP systolic 105–136; BP diastolic 56–87
[2019-11-06] MEDS: FUROSEMIDE 10 MG/ML 2ML VIAL IV SCH ×3 (04:10→20:53)
[2019-11-06] MEDS: HYDROCODONE/ACETAMINOPHEN 5/325 MG TAB PO PRN (04:10)
[2019-11-06] MEDS: PHARMACY COMMUNICATION MISC SCH (04:22)
[2019-11-06] MEDS: INSULIN LISPRO 100 UNIT/ML 3ML SQ SCH ×4 (05:09→20:50)
[2019-11-06 05:42] LABS: BASOPHILS % (AUTO) 0.2 % (0.0-5.0); HEMATOCRIT 32.2 % (36-48); MEAN CORPUSCULAR HEMOGLOBIN 28.8 pg (27.0-33.0); MEAN CORPUSCULAR HGB CONC 34.8 g/dL (32.0-36.0); MEAN CORPUSCULAR VOLUME 82.8 fL (79-99); MONOCYTES % (AUTO) 7.2 % (3.0-13.0); PLATELET COUNT (AUTO) 649 K/uL (130-400); RED BLOOD CELL COUNT(AUTO) 3.89 MIL/uL (4.00-5.50); RED CELL DISTRIBUTION WIDTH 13.4 % (11.0-15.5)
[2019-11-06 06:03] LABS: ALBUMIN 2.6 g/dL (3.5-5.0); BILIRUBIN,TOTAL 0.4 mg/dL (0.2-1.0); CREATININE 0.7 mg/dL (0.5-1.5); CRP QUANTITATIVE 19.9 mg/L (0.00-9.0); MAGNESIUM 1.8 mg/dL (1.80-2.40); PHOSPHORUS 3.4 mg/dL (2.5-4.9); POTASSIUM 3.2 mmol/L (3.5-5.1); TOTAL PROTEIN, SERUM 7.2 g/dL (6.0-8.3)
--- NOTE | 2019-11-06 06:15 | NUR ---
K+ First dose of potassium po given for K+ 3.2
[2019-11-06] MEDS: FAMOTIDINE 20MG TAB 20 MG TAB PO SCH ×2 (08:33→20:52)
[2019-11-06] MEDS: BENZONATATE 100 MG CAPSULE PO SCH ×3 (08:33→20:51)
[2019-11-06] MEDS: CEFTRIAXONE SODIUM 1 GM IVP SCH ×2 (08:33→20:53)
[2019-11-06] MEDS: ACETAMINOPHEN 325 MG TAB PO PRN ×3 (08:34→12:35)
[2019-11-06] MEDS: DOXYCYCLINE HYCLATE 100 MG TABLET PO SCH ×2 (08:34→20:52)
[2019-11-06] MEDS: ASCORBIC ACID 500 MG TAB PO SCH (08:34)
[2019-11-06] MEDS: DEXAMETHASONE 4 MG TAB PO SCH (08:36)
[2019-11-06] MEDS: ENOXAPARIN SODIUM 30 MG/0.3 ML SQ SCH ×2 (08:37→20:52)
[2019-11-06] MEDS ORDERED: MAGNESIUM 2GM PREMIX 50ML 50 ML IV SCH (12:00)
[2019-11-06] MEDS: REMDESIVIR (EUA) 520 100 MG in SODIUM CHLORIDE 0.9% 250 ML IV SCH (12:33)
[2019-11-06] MEDS: ZINC SULFATE 220 CAPSULE PO SCH (12:34)
[2019-11-06 16:22] LABS: CREATININE 0.8 mg/dL (0.5-1.5); POTASSIUM 4.7 mmol/L (3.5-5.1)
[2019-11-07] MEDS: PHARMACY COMMUNICATION MISC SCH (03:07)
[2019-11-07 03:17] VITALS: BP 123/60
[2019-11-07] MEDS: FUROSEMIDE 10 MG/ML 2ML VIAL IV SCH ×4 (04:41→20:53)
[2019-11-07 05:02] LABS: BASOPHILS % (AUTO) 0.2 % (0.0-5.0); HEMATOCRIT 32.8 % (36-48); LYMPHOCYTES % (AUTO) 8.6 % (21.0-51.0); MEAN CORPUSCULAR HGB CONC 34.5 g/dL (32.0-36.0); MEAN CORPUSCULAR VOLUME 84.1 fL (79-99); MONOCYTES % (AUTO) 7.5 % (3.0-13.0); NEUTROPHILS % (AUTO) 82.3 % (40.0-77.0); PLATELET COUNT (AUTO) 663 K/uL (130-400); RED CELL DISTRIBUTION WIDTH 13.5 % (11.0-15.5); WHITE BLOOD COUNT (AUTO) 15.5 K/uL (4.8-10.8)
[2019-11-07] MEDS: INSULIN LISPRO 100 UNIT/ML 3ML SQ SCH ×4 (05:17→21:49)
[2019-11-07 05:48] LABS: ALBUMIN 2.6 g/dL (3.5-5.0); BILIRUBIN,TOTAL 0.4 mg/dL (0.2-1.0); CREATININE 0.8 mg/dL (0.5-1.5); CRP QUANTITATIVE 56.5 mg/L (0.00-9.0); POTASSIUM 4.4 mmol/L (3.5-5.1); TOTAL PROTEIN, SERUM 7.4 g/dL (6.0-8.3)
[2019-11-07 06:06] LABS: B-TYPE NATRIURETIC PEPTIDE 21 pg/mL (0-100)
[2019-11-07 06:20] LABS: HEMOGLOBIN A1C 8.3 % (4.0-6.0)
[2019-11-07 08:00] VITALS: BP 134/74
[2019-11-07] MEDS: BENZONATATE 100 MG CAPSULE PO SCH ×3 (08:21→21:46)
[2019-11-07] MEDS: ACETAMINOPHEN 325 MG TAB PO PRN ×2 (08:22→17:06)
[2019-11-07] MEDS: ENOXAPARIN SODIUM 60 MG/0.6 ML SQ SCH ×2 (08:22→21:47)
[2019-11-07] MEDS: DEXAMETHASONE 4 MG TAB PO SCH (08:23)
[2019-11-07] MEDS: FAMOTIDINE 20MG TAB 20 MG TAB PO SCH ×2 (08:23→21:46)
[2019-11-07] MEDS: ASCORBIC ACID 500 MG TAB PO SCH (08:23)
[2019-11-07] MEDS ORDERED: SODIUM CHLORIDE 0.9% 500ML 500 ML IV ONE (10:54)
[2019-11-07] MEDS: ZINC SULFATE 220 CAPSULE PO SCH (11:06)
[2019-11-07 12:02] VITALS: BP 133/71
--- NOTE | 2019-11-07 15:00 | NUR ---
Convalescent Plasma Patient received one unit of convalescent plasma, no transfusion reactions noted. Patient tolerated transfusion well, Will continue to monitor.
[2019-11-07 16:00] VITALS: BP 142/74
[2019-11-07] MEDS: REMDESIVIR (EUA) 520 100 MG in SODIUM CHLORIDE 0.9% 250 ML IV SCH (16:15)
[2019-11-07 20:54] VITALS: BP 151/79
[2019-11-08] VITALS (7 sets, daily range): BP systolic 127–162; BP diastolic 62–87
[2019-11-08 03:59] LABS: ABG BASE EXCESS 3.8 mmol/L (-2.0-3.0); ABG OXYGEN SATURATION 92.9 % (95.0-99.0); ABG PCO2 41 mmHg (32-45)
[2019-11-08] MEDS: PHARMACY COMMUNICATION MISC SCH (06:00)
[2019-11-08 06:07] LABS: BASOPHILS % (AUTO) 0.2 % (0.0-5.0); EOSINOPHILS % (AUTO) 0.1 % (0.0-8.0); HEMATOCRIT 31.7 % (36-48); LYMPHOCYTES % (AUTO) 7.8 % (21.0-51.0); MEAN CORPUSCULAR HEMOGLOBIN 29.1 pg (27.0-33.0); MEAN CORPUSCULAR HGB CONC 34.1 g/dL (32.0-36.0); MEAN CORPUSCULAR VOLUME 85.4 fL (79-99); MONOCYTES % (AUTO) 6.1 % (3.0-13.0); NEUTROPHILS % (AUTO) 84.6 % (40.0-77.0); PLATELET COUNT (AUTO) 611 K/uL (130-400); RED BLOOD CELL COUNT(AUTO) 3.71 MIL/uL (4.00-5.50); RED CELL DISTRIBUTION WIDTH 13.5 % (11.0-15.5); WHITE BLOOD COUNT (AUTO) 12.8 K/uL (4.8-10.8)
[2019-11-08] MEDS: INSULIN LISPRO 100 UNIT/ML 3ML SQ SCH ×4 (06:23→20:41)
[2019-11-08 06:32] LABS: ALBUMIN 2.7 g/dL (3.5-5.0); BILIRUBIN,DIRECT 0.1 mg/dL (0.0-0.3); BILIRUBIN,TOTAL 0.6 mg/dL (0.2-1.0); CREATININE 0.6 mg/dL (0.5-1.5); CRP QUANTITATIVE 46.1 mg/L (0.00-9.0); POTASSIUM 4.1 mmol/L (3.5-5.1); TOTAL PROTEIN, SERUM 7.5 g/dL (6.0-8.3)
[2019-11-08] MEDS ORDERED: INSULIN GLARGINE 100 UNITS/ML 10 ML VIAL SQ SCH (08:00)
[2019-11-08] MEDS: BENZONATATE 100 MG CAPSULE PO SCH ×3 (08:20→20:41)
[2019-11-08] MEDS: DEXAMETHASONE 4 MG TAB PO SCH (08:20)
[2019-11-08] MEDS: FAMOTIDINE 20MG TAB 20 MG TAB PO SCH ×2 (08:20→20:41)
[2019-11-08] MEDS: ASCORBIC ACID 500 MG TAB PO SCH (08:20)
[2019-11-08] MEDS: ENOXAPARIN SODIUM 60 MG/0.6 ML SQ SCH ×2 (08:21→20:42)
[2019-11-08] MEDS: ZINC SULFATE 220 CAPSULE PO SCH (12:08)
--- NOTE | 2019-11-08 17:27 | NUR ---
PT AWAKE AND ALERT X 3. PT PLACED IN PRONE POSTION 10AM. PT NOTED TO CONSUME 50% BREAKFAST, 50% LUNCH, 25% DINNER. PT AMBULATED TO BATHROOM IN ROOM WITH NON REBREATHER AND PORTABLE OXYGEN, PT NOTED TO VOID, PT HAD 1 BOWEL MOVEMENT, NO SOB NO DISTRESS NOTED. PT PLACED IN PRONE POSITION UNTIL DINNER FOR 2 HRS. NO COMPLAINTS OFFERED. WILL CONT TO MONITOR
[2019-11-09 03:57] VITALS: BP 115/53
[2019-11-09 05:26] LABS: BASOPHILS % (AUTO) 0.1 % (0.0-5.0); EOSINOPHILS % (AUTO) 0.1 % (0.0-8.0); HEMATOCRIT 31.9 % (36-48); LYMPHOCYTES % (AUTO) 7.9 % (21.0-51.0); MEAN CORPUSCULAR HEMOGLOBIN 29.2 pg (27.0-33.0); MEAN CORPUSCULAR HGB CONC 34.2 g/dL (32.0-36.0); MEAN CORPUSCULAR VOLUME 85.5 fL (79-99); MONOCYTES % (AUTO) 6.9 % (3.0-13.0); NEUTROPHILS % (AUTO) 83.7 % (40.0-77.0); RED BLOOD CELL COUNT(AUTO) 3.73 MIL/uL (4.00-5.50); RED CELL DISTRIBUTION WIDTH 13.4 % (11.0-15.5); WHITE BLOOD COUNT (AUTO) 11.5 K/uL (4.8-10.8)
[2019-11-09 05:37] LABS: PLATELET COUNT (AUTO) 743 K/uL (130-400)
[2019-11-09] MEDS: INSULIN LISPRO 100 UNIT/ML 3ML SQ SCH ×4 (05:38→21:01)
[2019-11-09 05:52] LABS: B-TYPE NATRIURETIC PEPTIDE 42 pg/mL (0-100)
[2019-11-09 06:12] LABS: ALBUMIN 2.7 g/dL (3.5-5.0); BILIRUBIN,TOTAL 0.4 mg/dL (0.2-1.0); CREATININE 0.6 mg/dL (0.5-1.5); CRP QUANTITATIVE 37.2 mg/L (0.00-9.0); POTASSIUM 4.6 mmol/L (3.5-5.1); TOTAL PROTEIN, SERUM 7.5 g/dL (6.0-8.3)
[2019-11-09 08:00] VITALS: BP 114/53
[2019-11-09] MEDS: FAMOTIDINE 20MG TAB 20 MG TAB PO SCH ×2 (09:53→21:04)
[2019-11-09] MEDS: BENZONATATE 100 MG CAPSULE PO SCH ×3 (09:53→21:04)
[2019-11-09] MEDS: ASCORBIC ACID 500 MG TAB PO SCH (09:53)
[2019-11-09] MEDS: DEXAMETHASONE 4 MG TAB PO SCH (09:55)
[2019-11-09] MEDS: ENOXAPARIN SODIUM 60 MG/0.6 ML SQ SCH ×2 (09:55→21:04)
[2019-11-09 11:30] VITALS: BP 119/57
[2019-11-09] MEDS: ZINC SULFATE 220 CAPSULE PO SCH (12:41)
[2019-11-09] MEDS: ACETAMINOPHEN 325 MG TAB PO PRN (13:44)
[2019-11-09 15:30] VITALS: BP 127/77
--- NOTE | 2019-11-09 16:36 | NUR ---
Pt laying prone in bed 2 hours intermittently, good PO fluids noted during, Breakfast, lunch and dinner. patient tolerating non rebreather well. No complaints offered. will cont to monitor
[2019-11-09 20:01] VITALS: BP 140/78
[2019-11-10] VITALS (7 sets, daily range): BP systolic 115–134; BP diastolic 65–78
[2019-11-10 06:00] LABS: BASOPHILS % (AUTO) 0.1 % (0.0-5.0); EOSINOPHILS % (AUTO) 0.1 % (0.0-8.0); HEMATOCRIT 32.2 % (36-48); LYMPHOCYTES % (AUTO) 9.6 % (21.0-51.0); MEAN CORPUSCULAR HEMOGLOBIN 28.6 pg (27.0-33.0); MEAN CORPUSCULAR HGB CONC 33.9 g/dL (32.0-36.0); MEAN CORPUSCULAR VOLUME 84.5 fL (79-99); MONOCYTES % (AUTO) 6.7 % (3.0-13.0); NEUTROPHILS % (AUTO) 82.6 % (40.0-77.0); RED BLOOD CELL COUNT(AUTO) 3.81 MIL/uL (4.00-5.50); RED CELL DISTRIBUTION WIDTH 13.6 % (11.0-15.5); WHITE BLOOD COUNT (AUTO) 9.4 K/uL (4.8-10.8)
[2019-11-10 06:15] LABS: ALBUMIN 2.7 g/dL (3.5-5.0); BILIRUBIN,TOTAL 0.5 mg/dL (0.2-1.0); CREATININE 0.6 mg/dL (0.5-1.5); CRP QUANTITATIVE 23.3 mg/L (0.00-9.0); TOTAL PROTEIN, SERUM 7.5 g/dL (6.0-8.3)
[2019-11-10 06:16] LABS: PLATELET COUNT (AUTO) 729 K/uL (130-400)
[2019-11-10] MEDS: INSULIN LISPRO 100 UNIT/ML 3ML SQ SCH ×4 (06:20→19:56)
[2019-11-10] MEDS: DEXAMETHASONE 4 MG TAB PO SCH (09:29)
[2019-11-10] MEDS: BENZONATATE 100 MG CAPSULE PO SCH ×3 (09:30→19:49)
[2019-11-10] MEDS: FAMOTIDINE 20MG TAB 20 MG TAB PO SCH ×2 (09:30→19:49)
[2019-11-10] MEDS: ASCORBIC ACID 500 MG TAB PO SCH (09:30)
[2019-11-10] MEDS: ENOXAPARIN SODIUM 60 MG/0.6 ML SQ SCH ×2 (09:31→19:51)
[2019-11-10] MEDS: ZINC SULFATE 220 CAPSULE PO SCH (14:36)
[2019-11-11] MEDS: HYDROCODONE/ACETAMINOPHEN 5/325 MG TAB PO PRN ×2 (02:48→22:13)
[2019-11-11 03:00] VITALS: BP 131/70
[2019-11-11 03:26] LABS: ABG BASE EXCESS 1.3 mmol/L (-2.0-3.0); ABG HCO3 24.3 mmol/L (21.0-28.0); ABG OXYGEN SATURATION 91.7 % (95.0-99.0); ABG PCO2 34 mmHg (32-45)
[2019-11-11 05:08] LABS: BASOPHILS % (AUTO) 0.1 % (0.0-5.0); EOSINOPHILS % (AUTO) 0.1 % (0.0-8.0); HEMATOCRIT 31.6 % (36-48); LYMPHOCYTES % (AUTO) 12.7 % (21.0-51.0); MEAN CORPUSCULAR HEMOGLOBIN 28.5 pg (27.0-33.0); MEAN CORPUSCULAR HGB CONC 33.9 g/dL (32.0-36.0); MONOCYTES % (AUTO) 7.6 % (3.0-13.0); NEUTROPHILS % (AUTO) 78.2 % (40.0-77.0); RED BLOOD CELL COUNT(AUTO) 3.76 MIL/uL (4.00-5.50); RED CELL DISTRIBUTION WIDTH 13.4 % (11.0-15.5); WHITE BLOOD COUNT (AUTO) 9.1 K/uL (4.8-10.8)
[2019-11-11 05:15] LABS: PLATELET COUNT (AUTO) 772 K/uL (130-400)
[2019-11-11 05:23] LABS: ALBUMIN 2.6 g/dL (3.5-5.0); BILIRUBIN,TOTAL 0.4 mg/dL (0.2-1.0); CREATININE 0.9 mg/dL (0.5-1.5); POTASSIUM 4.7 mmol/L (3.5-5.1); TOTAL PROTEIN, SERUM 7.1 g/dL (6.0-8.3)
[2019-11-11] MEDS: INSULIN LISPRO 100 UNIT/ML 3ML SQ SCH ×4 (05:38→21:33)
--- NOTE | 2019-11-11 05:45 | NUR ---
assessment pt. is alert and oriented times 4. I gave her a lortab this morning for shoulder pain. She stated that it relieved the pain completely. she is sating 95% on 4 liters nasal canula. she voided 400mls of clear yellow urine overnight. her am blood sugar is 209 i gave her 3 units of coverage. vital signs are stable will continue to monitor.
[2019-11-11 08:00] VITALS: BP 121/80
[2019-11-11] MEDS: FAMOTIDINE 20MG TAB 20 MG TAB PO SCH ×2 (08:06→20:20)
[2019-11-11] MEDS: DEXAMETHASONE 4 MG TAB PO SCH (08:07)
[2019-11-11] MEDS: ENOXAPARIN SODIUM 60 MG/0.6 ML SQ SCH ×2 (08:08→20:20)
[2019-11-11] MEDS: ASCORBIC ACID 500 MG TAB PO SCH (08:08)
[2019-11-11] MEDS: BENZONATATE 100 MG CAPSULE PO SCH ×3 (09:10→20:20)
[2019-11-11 11:30] VITALS: BP 123/76
[2019-11-11] MEDS: ZINC SULFATE 220 CAPSULE PO SCH (12:00)
--- NOTE | 2019-11-11 12:55 | NUR ---
PARI Clayton ASSOCIATE MEDICAL DIRECTOR notified of Bgm [id number]. wants insulin on sliding scale to be given and recheck sugar in 1 hour
[2019-11-11 16:00] VITALS: BP 138/73
[2019-11-11 20:06] VITALS: BP 120/63
--- NOTE | 2019-11-11 20:12 | NUR ---
BLOOD SUGAR 393 BLOOD SUGAR OF 393 ON CLL PROVIDER SHARI SHI NOTIFIED. NO NEW ORDERS AT THIS TIME.
[2019-11-11 23:23] VITALS: BP 122/48
[2019-11-12 05:14] VITALS: BP 132/72
[2019-11-12] MEDS: INSULIN LISPRO 100 UNIT/ML 3ML SQ SCH ×4 (05:37→20:19)
[2019-11-12 06:14] LABS: BASOPHILS % (AUTO) 0.1 % (0.0-5.0); EOSINOPHILS % (AUTO) 0.3 % (0.0-8.0); HEMATOCRIT 32.9 % (36-48); MEAN CORPUSCULAR HEMOGLOBIN 28.8 pg (27.0-33.0); MEAN CORPUSCULAR HGB CONC 33.7 g/dL (32.0-36.0); MEAN CORPUSCULAR VOLUME 85.5 fL (79-99); MONOCYTES % (AUTO) 7.2 % (3.0-13.0); NEUTROPHILS % (AUTO) 77.9 % (40.0-77.0); RED BLOOD CELL COUNT(AUTO) 3.85 MIL/uL (4.00-5.50); RED CELL DISTRIBUTION WIDTH 13.6 % (11.0-15.5); WHITE BLOOD COUNT (AUTO) 11.7 K/uL (4.8-10.8)
[2019-11-12 06:32] LABS: PLATELET COUNT (AUTO) 805 K/uL (130-400)
[2019-11-12 06:33] LABS: CREATININE 0.7 mg/dL (0.5-1.5)
[2019-11-12 08:00] VITALS: BP 127/67
[2019-11-12] MEDS: ASCORBIC ACID 500 MG TAB PO SCH (08:02)
[2019-11-12] MEDS: FAMOTIDINE 20MG TAB 20 MG TAB PO SCH ×2 (08:02→20:19)
[2019-11-12] MEDS: DEXAMETHASONE 4 MG TAB PO SCH (08:03)
[2019-11-12] MEDS: ENOXAPARIN SODIUM 60 MG/0.6 ML SQ SCH ×2 (08:08→20:20)
[2019-11-12] MEDS: BENZONATATE 100 MG CAPSULE PO SCH ×3 (08:08→20:19)
[2019-11-12] MEDS: ZINC SULFATE 220 CAPSULE PO SCH (11:23)
[2019-11-12 11:30] VITALS: BP 106/91
[2019-11-12 15:30] VITALS: BP 146/62
[2019-11-12 20:02] VITALS: BP 120/64
[2019-11-12] MEDS: HYDROCODONE/ACETAMINOPHEN 5/325 MG TAB PO PRN (21:28)
[2019-11-12 23:41] VITALS: BP 124/65
--- NOTE | 2019-11-13 02:05 | NUR ---
HYPOGLYCEMIA PT WOKE UP C/O FEELING JITTERY, BS CHECK 45 GIVEN ORANGE JUICE BLOOD SUGAR RECHECK 136 PT STATES SHE FEELS MUCH BETTER NOW.
[2019-11-13 04:01] VITALS: BP 122/67
[2019-11-13 05:17] LABS: % IRON SATURATION 17.5 % (22-44)
[2019-11-13] MEDS: INSULIN LISPRO 100 UNIT/ML 3ML SQ SCH ×4 (05:45→21:42)
[2019-11-13 09:04] VITALS: BP 127/67
[2019-11-13] MEDS: ASCORBIC ACID 500 MG TAB PO SCH (09:38)
[2019-11-13] MEDS: DEXAMETHASONE 4 MG TAB PO SCH (09:38)
[2019-11-13] MEDS: ENOXAPARIN SODIUM 60 MG/0.6 ML SQ SCH ×2 (09:38→21:01)
[2019-11-13] MEDS: FAMOTIDINE 20MG TAB 20 MG TAB PO SCH ×2 (09:38→21:00)
[2019-11-13] MEDS: BENZONATATE 100 MG CAPSULE PO SCH ×3 (09:38→21:00)
[2019-11-13 12:27] VITALS: BP 109/61
--- NOTE | 2019-11-13 12:48 | NUR ---
DC PLAN VISITED WITH PATIENT. CALLED TO CELL PHONE. PATIENT PLANS TO DC HOME. 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 GAVE RUEL FOR OXYGEN. NURSE COSIGNED RUEL. EXPLAINED PENDING O2 EVAL AND DR. LEIVA TO CLEAR PATIENT. CM WILL CONTINUE TO FOLLOW. Addendum: 11/13/19 at 1250 by STEFANO WADE RN CM Amended: Links added.
[2019-11-13] MEDS: ZINC SULFATE 220 CAPSULE PO SCH (13:26)
[2019-11-13 15:36] VITALS: BP 109/62
[2019-11-13 20:12] VITALS: BP 135/82
[2019-11-13] MEDS: HYDROCODONE/ACETAMINOPHEN 5/325 MG TAB PO PRN (21:08)
[2019-11-14 00:07] VITALS: BP 137/76
[2019-11-14 03:56] VITALS: BP 126/68
[2019-11-14] MEDS: INSULIN LISPRO 100 UNIT/ML 3ML SQ SCH ×2 (07:30→11:30)
[2019-11-14] MEDS ORDERED: DEXA4 PO (08:28)
[2019-11-14 08:41] VITALS: BP 121/91
[2019-11-14] MEDS: ASCORBIC ACID 500 MG TAB PO SCH (09:04)
[2019-11-14] MEDS: BENZONATATE 100 MG CAPSULE PO SCH ×2 (09:04→13:39)
[2019-11-14] MEDS: ENOXAPARIN SODIUM 60 MG/0.6 ML SQ SCH (09:04)
[2019-11-14] MEDS: DEXAMETHASONE 4 MG TAB PO SCH (09:05)
[2019-11-14] MEDS: FAMOTIDINE 20MG TAB 20 MG TAB PO SCH (09:05)
[2019-11-14] MEDS: ZINC SULFATE 220 CAPSULE PO SCH (12:00)
[2019-11-14] MEDS ORDERED: DEXA4TAB69 PO (12:04)
[2019-11-14 12:35] VITALS: BP 113/60
== END 2019-11-14 13:46 | disposition home or self-care (01) | DRG 177 ==
LOC: EDH 16:09 → EDHIP 23:36 → 2AH 11-02 03:42
PROVIDERS: ADMIT Internal Medicine; ATTEND Internal Medicine
PROC: XW13325 Transfusion of Convalescent Plasma (Nonautologous) into Peripheral Vein, Percutaneous Approach, New Technology Group 5 (ICD-10-PCS; principal; 2019-11-01)
PROC: XW033E5 Introduction of Remdesivir Anti-infective into Peripheral Vein, Percutaneous Approach, New Technology Group 5 (ICD-10-PCS; 2019-11-03)
DX: U07.1 COVID-19 (principal); J12.89 Other viral pneumonia; J96.01 Acute respiratory failure with hypoxia; J44.1 Chronic obstructive pulmonary disease with (acute) exacerbation; J44.0 Chronic obstructive pulmonary disease with (acute) lower respiratory infection; M19.90 Unspecified osteoarthritis, unspecified site; I10 Essential (primary) hypertension; E78.5 Hyperlipidemia, unspecified; D64.9 Anemia, unspecified; F32.9 Major depressive disorder, single episode, unspecified; Z60.2 Problems related to living alone; E11.9 Type 2 diabetes mellitus without complications; Z79.4 Long term (current) use of insulin; Z82.3 Family history of stroke; Z83.3 Family history of diabetes mellitus; Z82.49 Family history of ischemic heart disease and other diseases of the circulatory system
CPT/HCPCS: 36415; 36430; 36600; 71045; 80048; 80053; 80076; 82550; 82728; 82803; 82948; 83036; 83540; 83550; 83605; 83615; 83735; 83874; 83880; 84100; 84145; 84484; 85025; 85027; 85378; 85610; 85730; 86140; 86900; 86901; 86927; 87040; 87426; 87486; 87581; 87633; 87798; 93005; 94760; 97039; G0378; J0456; J0696; J1650; J1815; J1940; J3475; J7030; J7040; J7050; J8540; U0003

== ENCOUNTER 2020-08-09 01:54 | Emergency (ER) | payer MEDICARE ==
[~2020-08-09 01:54] MED LIST changes: +AMLO-258 PO; -AMLO10TA7 PO; +DEXA4TAB69 PO; -LISI40TA4 PO; +LISI40TA9 PO
[2020-08-09] MEDS ORDERED: DiphenhydrAMINE HCL 50 MG/ML VIAL ONE (02:16)
[2020-08-09] MEDS ORDERED: FAMOTIDINE/PF 20 MG/2 ML VIAL IV ONE (02:16)
[2020-08-09 02:26] LABS: BASOPHILS % (AUTO) 0.2 % (0.0-5.0); EOSINOPHILS % (AUTO) 3.7 % (0.0-8.0); HEMATOCRIT 37.5 % (36-48); LYMPHOCYTES % (AUTO) 45.4 % (21.0-51.0); MEAN CORPUSCULAR HEMOGLOBIN 30.2 pg (27.0-33.0); MEAN CORPUSCULAR HGB CONC 33.9 g/dL (32.0-36.0); MEAN CORPUSCULAR VOLUME 89.1 fL (79-99); MONOCYTES % (AUTO) 7.3 % (3.0-13.0); NEUTROPHILS % (AUTO) 43.2 % (40.0-77.0); PLATELET COUNT (AUTO) 347 K/uL (130-400); RED BLOOD CELL COUNT(AUTO) 4.21 MIL/uL (4.00-5.50); RED CELL DISTRIBUTION WIDTH 12.2 % (11.0-15.5); WHITE BLOOD COUNT (AUTO) 8.4 K/uL (4.8-10.8)
[2020-08-09 02:38] LABS: CREATININE 0.7 mg/dL (0.5-1.5); POTASSIUM 5.3 mmol/L (3.5-5.1)
[2020-08-09 02:43] LABS: ALBUMIN 3.6 g/dL (3.5-5.0); BILIRUBIN,TOTAL 0.4 mg/dL (0.2-1.0); TOTAL PROTEIN, SERUM 7.4 g/dL (6.0-8.3)
[2020-08-09 02:52] LABS: INR 0.97 (0.85-1.15); PROTHROMBIN TIME 10.1 SEC (9.6-11.6)
[2020-08-09 03:24] LABS: B-TYPE NATRIURETIC PEPTIDE 11 pg/mL (0-100)
[2020-08-09] MEDS ORDERED: METHYLPREDNISOLONE SOD SUCC 125MG/2ML VIAL ONE (03:42)
[2020-08-09] MEDS ORDERED: IOHEXOL-350 75 ML VIAL IV ONE (03:55)
== END 2020-08-09 06:25 | disposition home or self-care (01) ==
LOC: EDH 01:54
DX: R07.89 Other chest pain (principal); K80.80 Other cholelithiasis without obstruction; Z20.822 Contact with and (suspected) exposure to COVID-19; M19.90 Unspecified osteoarthritis, unspecified site; F32.9 Major depressive disorder, single episode, unspecified; E11.9 Type 2 diabetes mellitus without complications; E78.5 Hyperlipidemia, unspecified; I10 Essential (primary) hypertension; Z91.040 Latex allergy status
CPT/HCPCS: 36415; 71045; 71275; 80053; 83880; 84484 ×2; 85025; 85378; 85610; 85730; 87426; 93005 ×2; 96374; 96375; 99285; J1200; J2930; J3490; Q9967; U0003

== ENCOUNTER 2020-10-25 06:58 | Day surgery (SDC) | payer MEDICARE ==
[2020-10-17 12:45] LABS: BASOPHILS % (AUTO) 0.2 % (0.0-5.0); EOSINOPHILS % (AUTO) 1.7 % (0.0-8.0); HEMATOCRIT 39.8 % (36-48); LYMPHOCYTES % (AUTO) 49.1 % (21.0-51.0); MEAN CORPUSCULAR HEMOGLOBIN 30.3 pg (27.0-33.0); MEAN CORPUSCULAR HGB CONC 32.7 g/dL (32.0-36.0); MEAN CORPUSCULAR VOLUME 92.8 fL (79-99); NEUTROPHILS % (AUTO) 42.7 % (40.0-77.0); PLATELET COUNT (AUTO) 356 K/uL (130-400); RED BLOOD CELL COUNT(AUTO) 4.29 MIL/uL (4.00-5.50); RED CELL DISTRIBUTION WIDTH 13.2 % (11.0-15.5)
[2020-10-17 13:01] LABS: PROTHROMBIN TIME 10.9 SEC (9.6-11.6)
[2020-10-17 13:45] LABS: CREATININE 0.9 mg/dL (0.5-1.5); POTASSIUM 4.6 mmol/L (3.5-5.1)
[2020-10-24 09:40] VITALS: BP 127/68
[~2020-10-25] VITALS: Ht 147.3 cm; Wt 65.5 kg
[2020-10-25] VITALS (13 sets, daily range): BP systolic 116–149; BP diastolic 54–78
[~2020-10-25 06:58] MED LIST changes: -DEXA4TAB69 PO; -DIPH25 PO; +FAMO20TA8 PO; -GABA-531 PO; -INS7030 SQ; +INSU100I35 SQ; -METF-446 PO; -OFLO5DRO21 OT; -PANT40TA PO; +PRED5TAB PO; +PROP40TA7 PO; -TYL3 PO
[2020-10-25] MEDS: CEFAZOLIN SODIUM 1 GM VIAL IVP ONE ×2 (07:40→08:30)
[2020-10-25] MEDS: 0.9%NACL 1000ML 1,000 ML IV SCH ×3 (07:40→09:20)
[2020-10-25] MEDS ORDERED: BUPIVACAINE/PF 0.5% 30ML VIAL ONE (07:41)
[2020-10-25] MEDS ORDERED: PROPOFOL 10 MG/ML 20ML VIAL IV ONE (07:53)
[2020-10-25] MEDS ORDERED: SUCCINYLCHOLINE 200MG/10ML SYR ONE (07:53)
[2020-10-25] MEDS ORDERED: GLYCOPYRROLATE 1 MG/5 ML SYRINGE ONE (07:53)
[2020-10-25] MEDS ORDERED: LIDOCAINE PF 100MG/5ML (2%) SYRINGE 5ML ONE (07:53)
[2020-10-25] MEDS ORDERED: NEOSTIGMINE 5MG/5ML SYR IV ONE (07:54)
[2020-10-25] MEDS ORDERED: ROCURONIUM 10MG/1ML SYR 10 MG/ML ML ONE (07:54)
[2020-10-25] MEDS ORDERED: FENTANYL CITRATE PF 50 MCG/1 ML 2ML VIAL ONE (07:54)
[2020-10-25] MEDS ORDERED: EPHEDRINE SULFATE 50 MG/ML AMPULE ONE (08:42)
[2020-10-25] MEDS ORDERED: KETOROLAC 30MG VIAL (30MG/ML) ONE (09:41)
[2020-10-25] MEDS ORDERED: ONDANSETRON 4MG INJ ONE (09:41)
[2020-10-25] MEDS ORDERED: MEPERIDINE-PF 25 MG/ML SYG ONE (10:22)
== END 2020-10-25 11:20 | disposition home or self-care (01) ==
LOC: DAH 06:58
PROVIDERS: ATTEND Surgery
DX: K80.00 Calculus of gallbladder with acute cholecystitis without obstruction (principal); Z20.822 Contact with and (suspected) exposure to COVID-19; I10 Essential (primary) hypertension; E78.5 Hyperlipidemia, unspecified; K21.9 Gastro-esophageal reflux disease without esophagitis; E11.9 Type 2 diabetes mellitus without complications; G47.30 Sleep apnea, unspecified; J44.9 Chronic obstructive pulmonary disease, unspecified; Z82.49 Family history of ischemic heart disease and other diseases of the circulatory system; Z83.3 Family history of diabetes mellitus; Z88.3 Allergy status to other anti-infective agents; Z79.01 Long term (current) use of anticoagulants
CPT/HCPCS: 36415; 47562; 80048; 82948 ×2; 85025; 85610; 87635; A4215; A4221; A4222; A4223; A4600; A4649 ×2; A4663; A6260; C1769; C9803; G0168; J0330; J0690; J1885; J2001; J2175; J2405; J2704; J2710; J3010; J3490 ×3; J7030 ×2

== ENCOUNTER 2022-04-02 09:26 | Emergency (ER) | payer MEDICARE ==
[~2022-04-02] VITALS: Ht 147.3 cm; Wt 64.4 kg
[2022-04-02] MEDS ORDERED: KETOROLAC 30MG VIAL (30MG/ML) IM STA (09:49)
[2022-04-02] MEDS ORDERED: NAPR375T6 PO (11:08)
[2022-04-02 11:59] VITALS: BP 125/78
== END 2022-04-02 12:04 | disposition home or self-care (01) ==
LOC: EDH 09:26
DX: S86.912A Strain of unspecified muscle(s) and tendon(s) at lower leg level, left leg, initial encounter (principal); Z91.040 Latex allergy status; Z79.899 Other long term (current) drug therapy; Z79.82 Long term (current) use of aspirin; Z90.49 Acquired absence of other specified parts of digestive tract; W01.0XXA Fall on same level from slipping, tripping and stumbling without subsequent striking against object, initial encounter; Y93.89 Activity, other specified; Y92.89 Other specified places as the place of occurrence of the external cause; Y99.8 Other external cause status
CPT/HCPCS: 99284; 73120; 73562; 96372; 29505; J1885

== ENCOUNTER 2022-11-23 09:03 | Emergency (ER) | payer MEDICARE ==
[~2022-11-23] VITALS: Ht 147.3 cm; Wt 64.0 kg
[~2022-11-23 09:03] MED LIST changes: +AMOX1TAB16 PO
[2022-11-23 09:41] LABS: BASOPHILS # (AUTO) 0.03 K/uL (0.00-0.20); BASOPHILS % (AUTO) 0.3 % (0.0-5.0); EOSINOPHILS # (AUTO) 0.21 K/uL (0.00-0.70); EOSINOPHILS % (AUTO) 2.4 % (0.0-8.0); HEMATOCRIT 39.6 % (36-48); IMMATURE GRANULOCYTE ABSOLUTE 0.04 K/uL (0-1); LYMPHOCYTES # (AUTO) 2.7 K/uL (1.0-4.8); LYMPHOCYTES % (AUTO) 30.1 % (21.0-51.0); MEAN CORPUSCULAR HEMOGLOBIN 30.6 pg (27.0-33.0); MEAN CORPUSCULAR HGB CONC 33.6 g/dL (32.0-36.0); MONOCYTES # (AUTO) 0.7 K/uL (0.1-1.0); MONOCYTES % (AUTO) 7.7 % (3.0-13.0); NEUTROPHILS # (AUTO) 5.3 K/uL (1.8-7.7); PLATELET COUNT (AUTO) 532 K/uL (130-400); RED BLOOD CELL COUNT(AUTO) 4.35 MIL/uL (4.00-5.50); RED CELL DISTRIBUTION WIDTH 13.4 % (11.0-15.5); WHITE BLOOD COUNT (AUTO) 8.9 K/uL (4.8-10.8)
[2022-11-23 09:51] LABS: ADD UA MICROSCOPIC YES
[2022-11-23 09:52] LABS: APPEARANCE,URINE CLEAR (CLEAR); BILIRUBIN,URINE NEGATIVE (NEGATIVE); COLOR,URINE LIGHT-YELLOW (YELLOW); GLUCOSE, URINE (UA) >=1000 mg/dL (NEGATIVE); KETONES,URINE 10 mg/dL (NEGATIVE); LEUKOCYTE ESTERASE ,URINE 75 Leu/uL (NEGATIVE); MUCUS,URINE RARE LPF (None Seen); NITRATE,URINE NEGATIVE (NEGATIVE); OCCULT BLOOD,URINE NEGATIVE (NEGATIVE); PROTEIN,URINE NEGATIVE (NEGATIVE); SQUAMOUS EPITHELIAL CELL,UR RARE /HPF (0-2); UROBILINOGEN,URINE 0.2 mg/dL (0.2-1.0)
[2022-11-23 10:17] LABS: ALBUMIN 3.9 g/dL (3.5-5.0); BILIRUBIN,TOTAL 0.5 mg/dL (0.2-1.0); CREATININE 1.2 mg/dL (0.5-1.5); POTASSIUM 4.4 mmol/L (3.5-5.1); TOTAL PROTEIN, SERUM 8.4 g/dL (6.0-8.3)
[2022-11-23] MEDS ORDERED: ZOSYN 3.375GM +NS 50ML IVPB ONE (11:00)
[2022-11-23] MEDS ORDERED: KETOROLAC 15MG/ML VIAL (15MG/ML) IV STA (11:01)
[2022-11-23] MEDS ORDERED: CIPR-279 PO (12:55)
[2022-11-23] MEDS ORDERED: METR375C2 PO (12:55)
[2022-11-23 13:02] VITALS: BP 106/50; PULSE 81; RESP 18; O2SAT 97
== END 2022-11-23 13:04 | disposition home or self-care (01) ==
LOC: EDH 09:03
DX: K57.92 Diverticulitis of intestine, part unspecified, without perforation or abscess without bleeding (principal); I10 Essential (primary) hypertension; E11.9 Type 2 diabetes mellitus without complications; E78.00 Pure hypercholesterolemia, unspecified; J44.9 Chronic obstructive pulmonary disease, unspecified; M43.17 Spondylolisthesis, lumbosacral region; Z79.82 Long term (current) use of aspirin; Z79.84 Long term (current) use of oral hypoglycemic drugs; Z79.899 Other long term (current) drug therapy; Z90.49 Acquired absence of other specified parts of digestive tract; Z98.890 Other specified postprocedural states; Z88.8 Allergy status to other drugs, medicaments and biological substances
CPT/HCPCS: 99285; 74176; 96365; 96375; 80053; 83690; 85025; 87088; 81001; 36415; J2543; J1885

== ENCOUNTER 2023-01-16 18:46 | Emergency (ER) | payer MEDICARE ==
[~2023-01-16] VITALS: Ht 144.8 cm; Wt 59.0 kg
[~2023-01-16 18:46] MED LIST changes: -AMOX1TAB16 PO; +ATOR40TA71 PO; -CYAN500L PO; +DAPA10TA PO; +FENO145T26 PO; +FOLI0.8T22 PO; -INSU100I35 SQ; +LORA10TA7 PO; +METF-444 PO; +METO25TA6 PO; -PRAV40TA3 PO; -PRED5TAB PO; -PROP40TA7 PO; +VITA1CAP50 PO; +VITA1CAP85 PO
[2023-01-16] MEDS ORDERED: IOHEXOL-350 75 ML VIAL IV ONE (21:55)
[2023-01-16] MEDS ORDERED: 0.9%NACL 1000ML 1,000 ML IV SCH (22:00)
[2023-01-16 22:09] LABS: BASOPHILS # (AUTO) 0.03 K/uL (0.00-0.20); BASOPHILS % (AUTO) 0.3 % (0.0-5.0); EOSINOPHILS # (AUTO) 0.23 K/uL (0.00-0.70); EOSINOPHILS % (AUTO) 2.2 % (0.0-8.0); HEMATOCRIT 34.4 % (36-48); IMMATURE GRANULOCYTE ABSOLUTE 0.04 K/uL (0-1); LYMPHOCYTES # (AUTO) 3.2 K/uL (1.0-4.8); LYMPHOCYTES % (AUTO) 30.8 % (21.0-51.0); MEAN CORPUSCULAR HGB CONC 33.1 g/dL (32.0-36.0); MEAN CORPUSCULAR VOLUME 90.5 fL (79-99); MONOCYTES # (AUTO) 0.7 K/uL (0.1-1.0); MONOCYTES % (AUTO) 6.8 % (3.0-13.0); NEUTROPHILS # (AUTO) 6.1 K/uL (1.8-7.7); NEUTROPHILS % (AUTO) 59.5 % (40.0-77.0); PLATELET COUNT (AUTO) 671 K/uL (130-400); RED CELL DISTRIBUTION WIDTH 12.6 % (11.0-15.5); WHITE BLOOD COUNT (AUTO) 10.3 K/uL (4.8-10.8)
[2023-01-16 22:27] LABS: CREATININE 1.1 mg/dL (0.5-1.5); POTASSIUM 4.4 mmol/L (3.5-5.1)
[2023-01-16 22:37] LABS: ALBUMIN 3.4 g/dL (3.5-5.0); BILIRUBIN,TOTAL 0.3 mg/dL (0.2-1.0); TOTAL PROTEIN, SERUM 8.8 g/dL (6.0-8.3)
[2023-01-16] MEDS ORDERED: FENO145T26 PO (22:42)
[2023-01-16] MEDS ORDERED: IRON1CAP32 PO (22:42)
[2023-01-16] MEDS ORDERED: FOLI1TAB85 PO (22:42)
[2023-01-16] MEDS ORDERED: AMOX1TAB16 PO (22:42)
[2023-01-16] MEDS ORDERED: AMLO2.5T4 PO (22:42)
[2023-01-16] MEDS ORDERED: METO25TA6 PO (22:42)
[2023-01-16] MEDS ORDERED: METF-444 PO (22:42)
[2023-01-16] MEDS ORDERED: DAPA10TA PO (22:42)
[2023-01-16] MEDS ORDERED: FAMO20TA8 PO (22:42)
[2023-01-16] MEDS ORDERED: DULO20CA18 PO (22:42)
[2023-01-16] MEDS ORDERED: ASPI-1197 PO (22:42)
[2023-01-16] MEDS ORDERED: ATOR40TA69 PO (22:42)
[2023-01-16] MEDS ORDERED: LISI40TA9 PO (22:42)
[2023-01-16] MEDS ORDERED: LORA10TA7 PO (22:42)
[2023-01-16] MEDS ORDERED: GABA-529 PO ×2 (22:42)
[2023-01-16 23:43] LABS: APPEARANCE,URINE CLEAR (CLEAR); BILIRUBIN,URINE NEGATIVE (NEGATIVE); COLOR,URINE COLORLESS (YELLOW); GLUCOSE, URINE (UA) >=1000 mg/dL (NEGATIVE); KETONES,URINE NEGATIVE (NEGATIVE); LEUKOCYTE ESTERASE ,URINE NEGATIVE Leu/uL (NEGATIVE); NITRATE,URINE NEGATIVE (NEGATIVE); OCCULT BLOOD,URINE NEGATIVE (NEGATIVE); PROTEIN,URINE NEGATIVE (NEGATIVE); UROBILINOGEN,URINE 0.2 mg/dL (0.2-1.0)
[2023-01-16 23:44] LABS: ADD UA MICROSCOPIC YES
[2023-01-16 23:45] LABS: RBC,URINE 0-1 /HPF (0-1); SQUAMOUS EPITHELIAL CELL,UR RARE /HPF (0-2); WBC,URINE 0-1 /HPF (0-1)
[2023-01-17 00:34] VITALS: BP 118/65; PULSE 74; RESP 18; O2SAT 98
== END 2023-01-17 00:46 | disposition home or self-care (01) ==
LOC: EDH 18:46
DX: L76.22 Postprocedural hemorrhage of skin and subcutaneous tissue following other procedure (principal); I10 Essential (primary) hypertension; E78.00 Pure hypercholesterolemia, unspecified; E11.9 Type 2 diabetes mellitus without complications; Z88.8 Allergy status to other drugs, medicaments and biological substances; Z90.49 Acquired absence of other specified parts of digestive tract; Z79.84 Long term (current) use of oral hypoglycemic drugs; Z79.899 Other long term (current) drug therapy
CPT/HCPCS: 36415; 74176; 80053; 81001; 82550; 83605; 83874; 84484; 85025; 87040; 87070; 87076; 87077; 87186; 93005; Q9967

== ENCOUNTER 2023-03-19 13:00 | Emergency (ER) | payer MEDICARE ==
[~2023-03-19] VITALS: Ht 147.3 cm; Wt 63.5 kg
[~2023-03-19 13:00] MED LIST changes: +AMLO2.5T4 PO; +AMOX1TAB16 PO; +ASPI-1197 PO; +ATOR40TA69 PO; +FOLI1TAB85 PO; +IRON1CAP32 PO
[2023-03-19 13:35] VITALS: BP 106/48; PULSE 76; RESP 18; O2SAT 99
[2023-03-19 13:50] LABS: BASOPHILS # (AUTO) 0.03 K/uL (0.00-0.20); BASOPHILS % (AUTO) 0.4 % (0.0-5.0); EOSINOPHILS # (AUTO) 0.29 K/uL (0.00-0.70); EOSINOPHILS % (AUTO) 4.3 % (0.0-8.0); HEMATOCRIT 34.1 % (36-48); IMMATURE GRANULOCYTE ABSOLUTE 0.02 K/uL (0-1); LYMPHOCYTES # (AUTO) 2.6 K/uL (1.0-4.8); LYMPHOCYTES % (AUTO) 38.8 % (21.0-51.0); MEAN CORPUSCULAR HEMOGLOBIN 30.7 pg (27.0-33.0); MEAN CORPUSCULAR HGB CONC 33.4 g/dL (32.0-36.0); MEAN CORPUSCULAR VOLUME 91.9 fL (79-99); MONOCYTES # (AUTO) 0.6 K/uL (0.1-1.0); MONOCYTES % (AUTO) 8.2 % (3.0-13.0); NEUTROPHILS # (AUTO) 3.3 K/uL (1.8-7.7); PLATELET COUNT (AUTO) 447 K/uL (130-400); RED BLOOD CELL COUNT(AUTO) 3.71 MIL/uL (4.00-5.50); RED CELL DISTRIBUTION WIDTH 14.6 % (11.0-15.5); WHITE BLOOD COUNT (AUTO) 6.8 K/uL (4.8-10.8)
[2023-03-19 14:00] LABS: CREATININE 1.5 mg/dL (0.5-1.5); POTASSIUM 4.9 mmol/L (3.5-5.1)
[2023-03-19 14:04] LABS: ALBUMIN 3.7 g/dL (3.5-5.0); BILIRUBIN,TOTAL 0.3 mg/dL (0.2-1.0); TOTAL PROTEIN, SERUM 7.7 g/dL (6.0-8.3)
== END 2023-03-19 15:04 | disposition home or self-care (01) ==
LOC: EDH 13:00
DX: R79.9 Abnormal finding of blood chemistry, unspecified (principal); I12.9 Hypertensive chronic kidney disease with stage 1 through stage 4 chronic kidney disease, or unspecified chronic kidney disease; E11.22 Type 2 diabetes mellitus with diabetic chronic kidney disease; N18.9 Chronic kidney disease, unspecified; J44.9 Chronic obstructive pulmonary disease, unspecified; F32.A Depression, unspecified; Z79.82 Long term (current) use of aspirin; Z79.84 Long term (current) use of oral hypoglycemic drugs; Z79.899 Other long term (current) drug therapy; Z90.49 Acquired absence of other specified parts of digestive tract; Z98.890 Other specified postprocedural states; Z88.8 Allergy status to other drugs, medicaments and biological substances
CPT/HCPCS: 36415; 80053; 85025